=== PATIENT | female | born 1955 | race Caucasian/White ===

== ENCOUNTER → 2018-06-13 00:45 | Outpatient (CLI) | payer BC, SELFPAY ==
[2018-06-13 09:16] LABS: ALT 20 U/L (12-78); AST 14 U/L (15-37); Albumin 3.6 g/dL (3.4-5.0); Alkaline Phosphatase 65 U/L (46-116); Anion Gap 6.2 mmol/L (3-11); BUN 12 mg/dL (7-18); Bilirubin, Total 0.7 mg/dL (0.2-1.0); CO2 30.8 mmol/L (21.0-32.0); CREATININE 0.56 mg/dL (0.55-1.02); Calcium 8.5 mg/dL (8.5-10.1); Chloride 107 mmol/L (98-107); Cholesterol 170 mg/dL (50-200); Glucose 88 mg/dL (70-100); HDL Cholesterol 64 mg/dL (40-60); LDL CHOLESTEROL 95 mg/dL (<100); Potassium 4.2 mmol/L (3.5-5.1); Sodium 144 mmol/L (136-145); Total Protein 6.5 g/dL (6.4-8.2); Triglyceride 91 mg/dL (30-150)
== END ==
DX: Z00.00 Encounter for general adult medical examination without abnormal findings (principal); E78.2 Mixed hyperlipidemia; N95.2 Postmenopausal atrophic vaginitis
CPT/HCPCS: 36415; 80053; 80061; 83721

== ENCOUNTER → 2018-06-19 00:52 | Outpatient (CLI) | payer BC, SELFPAY ==
--- NOTE | 2018-06-19 08:21 | DI.REPORT_ITS ---
SYMPTOMS/DIAGNOSIS: SCREENING, Z12.31 MAMMOGRAMS: Mammograms were interpreted according to the usual protocol including computer analysis with CAD system, tomosynthesis and C view imaging. The breast tissue is heterogeneously radiodense, which lowers the sensitivity of the study. There is no evidence of a dominant mass. There are no suspicious calcifications and there has been no significant interval change when compared with prior images. SUMMARY: No evidence of malignancy, category 1. Yearly screening mammography is recommended. Breast density category C. SA ASSESSMENT OF FINDINGS: Negative. Category 1. Patient will receive a letter notifying them of these results. Bi-RADS category C. The breasts are heterogeneously dense, which may obscure small masses.
== END ==
DX: Z12.31 Encounter for screening mammogram for malignant neoplasm of breast (principal)
CPT/HCPCS: 77063; 77067

== ENCOUNTER 2019-03-08 06:37 | Emergency (ER) | payer MEDICARE, BC, SELFPAY ==
[2019-03-08 06:43] VITALS: BP 141/65; PULSE 87; RESP 18; TEMP 36.9; O2SAT 97
--- NOTE | 2019-03-08 06:51 | W.ED.GENAD ---
Discharge Plan Disposition Patient Disposition: HOME Condition: Stable Discharge Details Chief Complaint: EyeProblem Clinical Impression: Bilateral conjunctivitis Primary Care Provider: Verónica Emmanuel ED Provider: Bc Hernández Home Meds and New Rx's Prescriptions: New erythromycin 5 mg/gram (0.5 %) ointment 1.25 cm OP TID Qty: 3.5 RF: 0 No Action amoxicillin 500 mg tablet 500 mg PO TID Qty: 21 RF: 0 calcium carbonate-vitamin D3 [Calcium 600 + D(3)] 1 EACH tablet 1 ea PO DAILY RF: 0 magnesium oxide 400 MG capsule 400 mg PO DAILY RF: 0 ibuprofen [Motrin IB] 200 MG tablet 200 mg PO daily prn RF: 0 famotidine 10 MG tablet 10 mg PO bid prn Qty: 30 RF: 4 doxepin 10 MG capsule 10 mg PO hs prn Qty: 30 RF: 3 simvastatin 5 MG tablet 5 mg PO DAILY Qty: 90 RF: 4 Discharge Instructions Instructions: Conjunctivitis (ED) Additional Instructions: if you have deep eye pain, difficulty breathing or high persistent fevers return to the emergency department if not better after you get back from [place] return to the emergency department Medical Decision Making 63 yo female comes in with chief complaint of bilateral eye redness and discharge. She is on abx for strep throat dx'd at her pcp's office. Her sore throat has improved but she still doesn't feel 100% and has had several days of eye redness and d/c. She denies vision chagnes, fevers, recent travel. On exam she is in no distress speaking in full sentences with clear lungs, normal oropharynx. She has bilateral conjunctival redness and green d/c. Will tx as possible bacterial conjunctivitis. She appears well without fever or other indications of serious bacterial illness so do not feel labs or imaging indicated. ADvised f/u with pcp and return precautions given Differential Diagnosis uri, pna, conjunctivitis HPI General Mode of arrival: ambulatory. Date/Time Provider Initiated Documentation: 03/08/19 06:40. Limitations to Documentation: no limitations. Information obtained by: patient. History of Present Illness 63 year old F presents to the emergency department with the chief complaint of eye redness, described as moderate, Quality is described as burning, and is localized to the eyes. Patient started experiencing this day(s) (3) and it has been constant. No relieving factors improve symptom(s), No exacerbating factors reported . Related Data Home Medications Medication Instructions Recorded Confirmed calcium carbonate-vitamin D3 1 ea PO DAILY 11/10/13 03/05/19 [Calcium 600 + Vit D 400 Caplet] magnesium oxide 400 mg PO DAILY 11/10/13 03/03/19 ibuprofen [Motrin Ib] 200 mg PO daily prn tab-cap 06/04/14 03/05/19 famotidine 10 mg PO bid prn #30 tab-cap 11/12/14 03/05/19 doxepin 10 mg PO hs prn #30 tab-cap 06/10/18 03/05/19 simvastatin 5 mg PO DAILY #90 tab-cap 06/10/18 03/05/19 amoxicillin 500 mg tablet 500 mg PO TID #21 tab 03/03/19 03/05/19 erythromycin 1.25 cm OP TID #3.5 gm 03/08/19 Previous Rx's Medication Instructions Recorded doxepin 10 mg PO hs prn #30 tab-cap 06/10/18 simvastatin 5 mg PO DAILY #90 tab-cap 06/10/18 amoxicillin 500 mg tablet 500 mg PO TID #21 tab 03/03/19 erythromycin 1.25 cm OP TID #3.5 gm 03/08/19 Allergies Allergy/AdvReac Type Severity Reaction Status Date / Time tetracycline AdvReac Severe NAUSEATED Verified 03/08/19 06:49 hydrocodone bitartrate AdvReac Mild Nausea Verified 03/08/19 06:49 [From Vicodin] General Stated Complaint: EyeProblem VENTURA: 4 Review of Systems Review of Systems All systems reviewed & are unremarkable except as noted in HPI and below Constitutional Denies chills and Denies fever(s) Cardiovascular Denies chest pain and Denies dyspnea Respiratory Denies dyspnea Gastrointestinal Denies abdominal pain, Denies nausea and Denies vomiting Integumentary/Breasts Denies rash [facility] Medical History Hemorrhoids (Acute) Foot pain, right (Acute) Mitral valve regurgitation (Acute) Medullary sponge kidney (Acute) Lipoma (Acute) Kidney stone (Acute 11/10/13) Insomnia (Acute) Hyperlipidemia (Acute 11/10/13) Family history of colon cancer (Acute 11/10/13) 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 Grandfather No problems noted. Grandmother Essential hypertension Grandmother Essential hypertension Stroke Daughter No problems noted. Daughter Depression Social History Smoking/Tobacco Use Status: Never Drug use: Never Do you feel safe at home: Yes Do you feel safe in your relationship?: Yes Exam Const General: no acute distress Orientation: alert HENMT Head: normal to inspection Ears: external ears normal General nose exam: external nose normal Mouth: moist mucous membranes Eyes Periorbital: periorbital findings normal Eyelids: eyelids normal Neck Neck: normal visual inspection Resp Effort & Inspection: normal respiratory effort and able to speak in complete sentences Cardio Rate: regular rate Skin General skin exam: no rashes or lesions noted Neuro General: alert and oriented x3 Extrem General: normal to inspection Psych Mental Status: mental status grossly normal Course Vital Signs Temperature 36.9 C 03/08/19 06:43 Pulse 87 03/08/19 06:43 Respiratory Rate 18 03/08/19 06:43 Blood Pressure 141/65 H 03/08/19 06:43 Pulse Oximetry 97 03/08/19 06:43 Temperature 36.9 C 03/08/19 06:43 Temperature Source Temporal Artery Scan 03/08/19 06:43 Pulse 87 03/08/19 06:43 Respiratory Rate 18 03/08/19 06:43 Respiratory Effort Non-Labored 03/08/19 06:43 Blood Pressure 141/65 H 03/08/19 06:43 Blood Pressure Position Sitting 03/08/19 06:43 Pulse Oximetry 97 03/08/19 06:43 Oxygen Delivery Method Room Air 03/08/19 06:43 Oxygen Flow Rate 0 03/08/19 06:43 Pain Level 0 03/08/19 06:43
--- NOTE | 2019-03-08 07:00 | ED.GENADUL_ITS ---
Discharge Plan Disposition Patient Disposition: HOME Condition: Stable Discharge Details Chief Complaint: EyeProblem Clinical Impression: Bilateral conjunctivitis Primary Care Provider: Verónica Emmanuel ED Provider: Bc Hernández Home Meds and New Rx's Prescriptions: New erythromycin 5 mg/gram (0.5 %) ointment 1.25 cm OP TID Qty: 3.5 RF: 0 No Action amoxicillin 500 mg tablet 500 mg PO TID Qty: 21 RF: 0 calcium carbonate-vitamin D3 [Calcium 600 + D(3)] 1 EACH tablet 1 ea PO DAILY RF: 0 magnesium oxide 400 MG capsule 400 mg PO DAILY RF: 0 ibuprofen [Motrin IB] 200 MG tablet 200 mg PO daily prn RF: 0 famotidine 10 MG tablet 10 mg PO bid prn Qty: 30 RF: 4 doxepin 10 MG capsule 10 mg PO hs prn Qty: 30 RF: 3 simvastatin 5 MG tablet 5 mg PO DAILY Qty: 90 RF: 4 Discharge Instructions Instructions: Conjunctivitis (ED) Additional Instructions: if you have deep eye pain, difficulty breathing or high persistent fevers return to the emergency department if not better after you get back from [place] return to the emergency department Medical Decision Making 63 yo female comes in with chief complaint of bilateral eye redness and discharge. She is on abx for strep throat dx'd at her pcp's office. Her sore throat has improved but she still doesn't feel 100% and has had several days of eye redness and d/c. She denies vision chagnes, fevers, recent travel. On exam she is in no distress speaking in full sentences with clear lungs, normal oropharynx. She has bilateral conjunctival redness and green d/c. Will tx as possible bacterial conjunctivitis. She appears well without fever or other indications of serious bacterial illness so do not feel labs or imaging indicated. ADvised f/u with pcp and return precautions given Differential Diagnosis uri, pna, conjunctivitis HPI General Mode of arrival: ambulatory . Date/Time Provider Initiated Documentation: 03/08/19 06:40 . Limitations to Documentation: no limitations . Information obtained by: patient . History of Present Illness 63 year old F presents to the emergency department with the chief complaint of eye redness, described as moderate, Quality is described as burning, and is localized to the eyes. Patient started experiencing this day(s) (3) and it has been constant. No relieving factors improve symptom(s), No exacerbating factors reported . Related Data Home Medications Medication Instructions Recorded Confirmed calcium carbonate-vitamin D3 1 ea PO DAILY 11/10/13 03/05/19 [Calcium 600 + Vit D 400 Caplet] magnesium oxide 400 mg PO DAILY 11/10/13 03/03/19 ibuprofen [Motrin Ib] 200 mg PO daily prn tab-cap 06/04/14 03/05/19 famotidine 10 mg PO bid prn #30 tab-cap 11/12/14 03/05/19 doxepin 10 mg PO hs prn #30 tab-cap 06/10/18 03/05/19 simvastatin 5 mg PO DAILY #90 tab-cap 06/10/18 03/05/19 amoxicillin 500 mg tablet 500 mg PO TID #21 tab 03/03/19 03/05/19 erythromycin 1.25 cm OP TID #3.5 gm 03/08/19 Previous Rx's Medication Instructions Recorded doxepin 10 mg PO hs prn #30 tab-cap 06/10/18 simvastatin 5 mg PO DAILY #90 tab-cap 06/10/18 amoxicillin 500 mg tablet 500 mg PO TID #21 tab 03/03/19 erythromycin 1.25 cm OP TID #3.5 gm 03/08/19 Allergies Allergy/AdvReac Type Severity Reaction Status Date / Time tetracycline AdvReac Severe NAUSEATED Verified 03/08/19 06:49 hydrocodone bitartrate AdvReac Mild Nausea Verified 03/08/19 06:49 [From Vicodin] General Stated Complaint: EyeProblem VENTURA: 4 Review of Systems Review of Systems All systems reviewed & are unremarkable except as noted in HPI and below Constitutional Denies chills and Denies fever(s) Cardiovascular Denies chest pain and Denies dyspnea Respiratory Denies dyspnea Gastrointestinal Denies abdominal pain, Denies nausea and Denies vomiting Integumentary/Breasts Denies rash FOR[facility], [facility] Medical History Hemorrhoids (Acute) Foot pain, right (Acute) Mitral valve regurgitation (Acute) Medullary sponge kidney (Acute) Lipoma (Acute) Kidney stone (Acute 11/10/13) Insomnia (Acute) Hyperlipidemia (Acute 11/10/13) Family history of colon cancer (Acute 11/10/13) 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 Grandfather No problems noted. Grandmother Essential hypertension Grandmother Essential hypertension Stroke Daughter No problems noted. Daughter Depression Social History Smoking/Tobacco Use Status: Never Drug use: Never Do you feel safe at home: Yes Do you feel safe in your relationship?: Yes Exam Const General: no acute distress Orientation: alert HENMT Head: normal to inspection Ears: external ears normal General nose exam: external nose normal Mouth: moist mucous membranes Eyes Periorbital: periorbital findings normal Eyelids: eyelids normal Neck Neck: normal visual inspection Resp Effort & Inspection: normal respiratory effort and able to speak in complete sentences Cardio Rate: regular rate Skin General skin exam: no rashes or lesions noted Neuro General: alert and oriented x3 Extrem General: normal to inspection Psych Mental Status: mental status grossly normal Course Vital Signs Temperature 36.9 C 03/08/19 06:43 Pulse 87 03/08/19 06:43 Respiratory Rate 18 03/08/19 06:43 Blood Pressure 141/65 H 03/08/19 06:43 Pulse Oximetry 97 03/08/19 06:43 Temperature 36.9 C 03/08/19 06:43 Temperature Source Temporal Artery Scan 03/08/19 06:43 Pulse 87 03/08/19 06:43 Respiratory Rate 18 03/08/19 06:43 Respiratory Effort Non-Labored 03/08/19 06:43 Blood Pressure 141/65 H 03/08/19 06:43 Blood Pressure Position Sitting 03/08/19 06:43 Pulse Oximetry 97 03/08/19 06:43 Oxygen Delivery Method Room Air 03/08/19 06:43 Oxygen Flow Rate 0 03/08/19 06:43 Pain Level 0 03/08/19 06:43
== END 2019-03-08 07:13 | disposition home or self-care (01) ==
LOC: ER 07:08
PROVIDERS: Emergency Provider Emergency Medicine
DX: H10.33 Unspecified acute conjunctivitis, bilateral (principal)
CPT/HCPCS: 99283

== ENCOUNTER 2019-06-03 01:36 | Outpatient (CLI) | payer MEDICARE, BC, SELFPAY ==
[2019-06-03 08:45] LABS: ALT 23 U/L (12-78); AST 15 U/L (15-37); Albumin 3.7 g/dL (3.4-5.0); Alkaline Phosphatase 76 U/L (46-116); BUN 14 mg/dL (7-18); Bilirubin, Total 0.6 mg/dL (0.2-1.0); CREATININE 0.52 mg/dL (0.55-1.02); Calcium 8.4 mg/dL (8.5-10.1); Calculated LDL 116 mg/dL; Chloride 106 mmol/L (98-107); Cholesterol 192 mg/dL (50-200); Glucose 89 mg/dL (70-100); HDL Cholesterol 63 mg/dL (40-60); Potassium 4.3 mmol/L (3.5-5.1); Sodium 142 mmol/L (136-145); Total Protein 6.8 g/dL (6.4-8.2); Triglyceride 66 mg/dL (30-150)
== END 2019-06-03 01:56 ==
DX: C44.211 Basal cell carcinoma of skin of unspecified ear and external auricular canal (principal); E78.5 Hyperlipidemia, unspecified; G47.00 Insomnia, unspecified; I34.0 Nonrheumatic mitral (valve) insufficiency; Q61.5 Medullary cystic kidney
CPT/HCPCS: 36415; 80053; 80061; 83721

== ENCOUNTER → 2019-06-22 11:14 | Outpatient (BNVA) | payer MEDICARE, BC, SELFPAY | PROVIDERS: Visit Provider Surgery | DX: K64.4 Residual hemorrhoidal skin tags (principal); Z80.0 Family history of malignant neoplasm of digestive organs | CPT/HCPCS: 99202; 99213 ==

== ENCOUNTER 2019-07-06 01:11 | Outpatient (CLI) | payer MEDICARE, BC, SELFPAY ==
--- NOTE | 2019-07-06 08:38 | DI.MAMMO_ITS ---
SYMPTOM/DIAGNOSIS: SCREENING Z12.31 BILATERAL SCREENING MAMMOGRAM: Mammograms were interpreted according to the usual protocol including computer analysis with CAD system, tomosynthesis and C view imaging. Comparison is made with exams from 2014 through 2018. The breasts are composed of heterogeneously dense fibroglandular tissue, breast density category C. There are scattered benign appearing calcifications bilaterally. No suspicious microcalcifications or masses are seen. There has been no significant change. IMPRESSION: Category 2, negative mammogram with benign findings. Yearly screening mammography is recommended. Breast density category C. MQSA ASSESSMENT OF FINDINGS: Negative with benign findings. Category 2. Patient will receive a letter notifying them of these results. Bi-RADS category C. The breasts are heterogeneously dense, which may obscure small masses.
== END 2019-07-06 01:31 ==
DX: Z12.31 Encounter for screening mammogram for malignant neoplasm of breast (principal)
CPT/HCPCS: 77063; 77067

== ENCOUNTER 2019-09-08 23:01 | Outpatient (REF) | payer MEDICARE, BC, SELFPAY | END 2019-09-08 23:21 | LOC: LBN 23:01 | PROVIDERS: Visit Provider Nurse Practitioner | DX: J02.9 Acute pharyngitis, unspecified (principal) | CPT/HCPCS: 87077; 87070 ==

== ENCOUNTER 2020-06-21 04:35 | Outpatient (CLI) | payer MEDICARE, BC, SELFPAY ==
[2020-06-21 08:33] LABS: ALT 24 U/L (14-59); AST 16 U/L (15-37); Albumin 3.9 g/dL (3.4-5.0); Alkaline Phosphatase 74 U/L (46-116); Anion Gap 6.2 mmol/L (3-11); BUN 12 mg/dL (7-18); Bilirubin, Total 0.8 mg/dL (0.2-1.0); CO2 30.8 mmol/L (21.0-32.0); CREATININE 0.59 mg/dL (0.55-1.02); Calculated LDL 124 mg/dL (<100); Chloride 105 mmol/L (98-107); Cholesterol 209 mg/dL (<200); Glucose 92 mg/dL (74-106); HDL Cholesterol 66 mg/dL (40-60); Potassium 4.1 mmol/L (3.5-5.1); Sodium 142 mmol/L (136-145); Total Protein 6.9 g/dL (6.4-8.2); Triglyceride 99 mg/dL (<150)
== END 2020-06-21 04:55 ==
DX: E78.5 Hyperlipidemia, unspecified (principal); F32.9 Major depressive disorder, single episode, unspecified; H81.10 Benign paroxysmal vertigo, unspecified ear
CPT/HCPCS: 36415; 80053; 80061

== ENCOUNTER 2020-07-14 01:23 | Outpatient (CLI) | payer MEDICARE, BC, SELFPAY ==
--- NOTE | 2020-07-14 08:38 | DI.MAMMO_ITS ---
EXAM: MG MAMMO SCREENING CLINICAL HISTORY: screening, Z12.39 TECHNIQUE: Bilateral full field digital CC and MLO mammographic images were obtained with 3D tomosyn thesis and utilizing computer aided detection (CAD). COMPARISON: Available for comparison. FINDINGS: Masses/Architectural Distortion: None seen. Microcalcifications: No suspicious pleomorphic-type are seen. Skin Thickening/Nipple Retraction: None. IMPRESSION: 1. No significant interval change with no specific features of malignancy noted. 2. Unless there is more urgent need, screening mammography is recommended, as per [employer] guidelines. BI-RADS Category 1 - Negative Breast Density - Category C - Heterogeneously dense The mammogram demonstrates the patient's breast tissue is dense. Dense breast tissue is very common a nd is not abnormal but dense breast tissue can make it harder to find cancer on a mammogram. Also, de nse breast tissue may increase their breast cancer risk. This information about the result of the [facility] mogram report was provided to the patient to raise their awareness. Use this report when you speak wi th the patient about their risks for breast cancer, which includes their family history. At that time , you may recommend for more screening tests (Ultrasound or MRI) as they might be useful based on the ir risk. A negative radiographic report should not delay biopsy if a dominant or clinically suspicious mass is present. Up to ten percent of cancers are not identified on mammography. A negative report may reinforce clinical impression. Adenosis and dense breasts may obscure an underlying neoplasm. False positive reports average 6 to 10%. Patient will receive a letter notifying them of these results.
== END 2020-07-14 01:43 ==
DX: Z12.31 Encounter for screening mammogram for malignant neoplasm of breast (principal); R92.2 Inconclusive mammogram
CPT/HCPCS: 77063; 77067

== ENCOUNTER 2021-03-09 06:21 | Emergency (ER) | payer MEDICARE, BC, SELFPAY ==
[2021-03-09] VITALS (26 sets, daily range): BP systolic 107–154; BP diastolic 43–84; PULSE 61–81; RESP 14–18; TEMP 36.8–37.2; O2SAT 92–97
--- NOTE | 2021-03-09 06:38 | ED.GENADUL_ITS ---
Discharge Plan Disposition Patient Disposition: HOME Condition: Improving Discharge Details Clinical Impression: Abdominal pain, Nausea Primary Care Provider: Verónica Emmanuel ED Provider: Janeth Nichols Home Meds and New Rx's Prescriptions: New prochlorperazine maleate [Compazine] 10 mg tablet 10 mg PO TID PRN (Reason: nausea and vomiting) Qty: 7 RF: 0 Continued magnesium 250 mg tablet 250 mg PO DAILY RF: 0 simvastatin 5 mg tablet 5 mg PO DAILY Qty: 90 RF: 4 sertraline 50 mg tablet 50 mg PO DAILY Qty: 30 RF: 2 calcium carbonate-vitamin D3 [Calcium 600 + D(3)] 1 EACH tablet 1 ea PO DAILY RF: 0 ibuprofen [Motrin IB] 200 MG tablet 200 mg PO daily prn RF: 0 famotidine 10 MG tablet 10 mg PO bid prn Qty: 30 RF: 4 Discharge Instructions Instructions: Acute Nausea and Vomiting (ED), Abdominal Pain (ED) Additional Instructions: Drink plenty of fluids and get plenty of rest. Alternate tylenol and motrin as needed and directed for pain. Your prescription has been sent electronically to your pharmacy. Call the pharmacy to make sure your prescription is ready before pickup. Take the prescription as directed. Call your primary care doctor's office today to schedule a follow-up appointment for reevaluation within the next week. Call the general surgery office to schedule a follow-up appointment for re evaluation for a potential upper endoscopy if your nausea persists and for scheduling of your colonoscopy. Return immediately to the emergency department if you develop any worsening or new concerning symptoms. Referrals: Mcia Lozano DO [OSTEOPATHIC DOCTOR] - Discharge Data Discharge Physician: Janeth Nichols Medical Decision Making <Bc Hernández MD - Last Filed: 03/09/21 06:49> 65 yo female with hx of hyperlipidemia, depression, two prior c sections, who comes in with chief complaint of one week of worsening abdominal discomfort and nausea without vomit. She denies chest pain, dyspnea, has been having daily bowel movements and no urinary symptoms. she states when she lays flat she has nausea. She has tenderness to palpation to the mid, right lower and left lower abdomen without guarding on exam. Symptoms could be due to gastritis vs food related allergy but given the tenderness on exam will obtain labs to evaluate for pancreatitis and hepatitis and ct to evaluate for possible diverticulitis vs sbo. pt signed out to oncoming provider pending labs and imaging results Differential Diagnosis Differential Diagnosis: gerd, gastritis, sbo, pancreatitis Medical Records Medical records reviewed: Yes I reviewed the patient's medical records. <Janeth Nichols DO - Last Filed: 03/09/21 13:26> 0800 --please see Dr. Hernández's note for initial presentation, exam and plan. Case endorsed to follow-up on labs and imaging results and reassessment and final disposition. 65-year-old female presents with 1 week of nausea and lower abdominal crampy pain. She states her main complaint is nausea but has occasional cramping in her lower abdomen. She denies any vomiting, change in bowel habits including diarrhea, rectal bleeding. She denies any fever, chest pain, shortness of breath, recent new medications, drug or alcohol use, recent known sick contacts. She did travel last week for a but this was after her symptoms started. Labs and imaging reviewed. Normal white blood cell count. Normal lactate. Normal lipase. Urinalysis notes 3-5 WBCs but rare bacteria and negative nitrite. In the setting of lack of urinary symptoms, normal white blood cell count and no fever, would doubt UTI. Urine culture sent. Patient appears significantly anxious. She states she was seen her primary care doctor for the symptoms and was told it was likely depression and started on sertraline 2 days ago. Considering patient's age, will add a troponin and EKG, Phenergan and Valium and reassess. Troponin negative. EKG notes a rate of 71, sinus, left anterior fascicular block, no STEMI. Patient reassessed and she states her symptoms improved but now her nausea is returning. Will give a dose of Compazine and Benadryl and reassess. 1325 --patient reassessed and she feels better and feels good to go home. Patient informed that she will be notified if urine culture positive. A prescription for Compazine was sent electronically to her pharmacy. She was also advised to call her primary care doctor tomorrow to schedule follow-up appointment for reevaluation within the next week. She was given surgery follow-up information if needed if her nausea and abdominal pain persist for reevaluation and consideration for upper endoscopy. Usual and customary return precautions given prior to discharge. Medical Records Medical records reviewed: Yes I reviewed the patient's medical records. ECG Data Attestation: I personally reviewed and interpreted this ECG (s) as follows: Interpretation: Rate of 71, sinus, left anterior fascicular block. No acute ST elevation or depression. TN 182. QRS 83. QTc 432. HPI <Bc Hernández MD - Last Filed: 03/09/21 06:49> General Mode of arrival: ambulatory . Date/Time Provider Initiated Documentation: 03/09/21 06:24 . Limitations to Documentation: no limitations . Information obtained by: patient . History of Present Illness 65 year old F presents to the emergency department with the chief complaint of abdomen pain, described as moderate, Patient started experiencing this week(s) (1) and it has been constant. No relieving factors improve symptom(s), No exacerbating factors reported . Patient did receive the following treatments prior to arrival, none Related Data Home Medications Medication Instructions Recorded Confirmed calcium carbonate-vitamin D3 1 ea PO DAILY 11/10/13 03/09/21 [Calcium 600 + D(3)] ibuprofen [Motrin IB] 200 mg PO daily prn tab-cap 06/04/14 03/09/21 famotidine 10 mg PO bid prn #30 tab-cap 11/12/14 03/09/21 magnesium 250 mg tablet 250 mg PO DAILY 06/11/19 03/09/21 simvastatin 5 mg tablet 5 mg PO DAILY #90 tab-cap 06/16/20 03/09/21 sertraline 50 mg tablet 50 mg PO DAILY #30 tab 03/07/21 03/09/21 prochlorperazine maleate 10 mg PO TID PRN #7 tab 03/09/21 [Compazine] Previous Rx's Medication Instructions Recorded simvastatin 5 mg tablet 5 mg PO DAILY #90 tab-cap 06/16/20 sertraline 50 mg tablet 50 mg PO DAILY #30 tab 03/07/21 prochlorperazine maleate 10 mg PO TID PRN #7 tab 03/09/21 [Compazine] Allergies Allergy/AdvReac Type Severity Reaction Status Date / Time tetracycline AdvReac Severe NAUSEATED Verified 03/09/21 06:32 hydrocodone bitartrate AdvReac Mild Nausea Verified 03/09/21 06:32 [From Vicodin] General Stated Complaint: Abd Prob VENTURA: 3 Review of Systems <Bc Hernández MD - Last Filed: 03/09/21 06:49> All systems reviewed & are unremarkable except as noted in HPI and below Constitutional Constitutional: Denies chills, Denies fever(s) and Denies weakness Cardiovascular Cardiovascular: Denies chest pain and Denies dyspnea Respiratory Respiratory: Denies cough and Denies dyspnea Gastrointestinal Gastrointestinal: Denies vomiting Musculoskeletal Musculoskeletal: Denies joint swelling Neurologic Neurologic: Denies weakness PFSH <Bc Hernández MD - Last Filed: 03/09/21 06:49> Medical History 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 DUENAS) Discomfort of left ear Elevated BP without diagnosis of hypertension Encounter for annual physical exam Family history of colon cancer (11/10/13) Foot pain, right Headache Hemorrhoids Hyperlipidemia (11/10/13) Insomnia Kidney stone (11/10/13) 1980 and 1991 Lipoma right axilla Medullary sponge kidney Mitral valve regurgitation MVP Skin lesions Surgical History section Colonoscopy - IV Sedation (05/30/16) Family History Mother , 89 Essential hypertension Hyperlipidemia Stroke Father , 81 Essential hypertension Heart disease Colon cancer Liver cancer Brother Hyperlipidemia Maternal Grandfather , 44 No problems noted. Paternal Grandfather , 92 No problems noted. Maternal Grandmother , 88 Essential hypertension Paternal Grandmother , 51 Essential hypertension Stroke Daughter No problems noted. Daughter Depression Social History Smoking/Tobacco Use Status: Never Second Hand Exposure: Yes Smoking risk assessment performed?: Yes Alcohol Intake: current Alcohol Intake frequency: holidays/special occasions only Alcohol type: wine Drug use: Never Substance use type: does not use Counseling given: No Counseling provided: none Caregiver/Support person: No Household members: spouse Housing: house Communication Needs: Corrective Lenses Do you need help understanding health information?: Never Pets and animals: No Do you think of yourself as: straight/heterosexual Current gender identity: female What is your relationship status?: How often do you talk on the phone with friends or family?: three or more times per week How often do you get together with friends or relatives?: three or more times per week How often do you attend sabianism or catholic services?: decline to answer Do you belong to any clubs or organized social groups?: yes Panel score (0-1 are the most socially isolated patients): 3 What type of physical activity do you participate in: walking and other Details: exercise group for strength and balance Duration: 15-30 minutes/day Frequency: 3-4 times per week Pamela/Advent: Rastafarian Special pamela needs: Yes (Last rights by a ) Seatbelt use: always Drive intox or ride w/intox 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 Do you feel safe at home: Yes Do you feel safe in your relationship?: Yes Exam <Bc Hernández MD - Last Filed: 03/09/21 06:49> Const General: no acute distress Orientation: alert HENMT Head: normal to inspection Ears: external ears normal General nose exam: external nose normal Mouth: moist mucous membranes Eyes General: appearance normal, both eyes and all related structures Neck Neck: normal visual inspection Resp Effort & Inspection: normal respiratory effort and able to speak in complete sentences Cardio Rate: regular rate GI Palpation: soft and tender Skin General skin exam: no rashes or lesions noted Neuro General: patient alert and patient oriented x3 Extrem General: normal to inspection Psych Mental Status: mental status grossly normal Course <Bc Hernández MD - Last Filed: 03/09/21 06:49> Vital Signs Vital signs: Vital Signs Temperature 37.1 C 03/09/21 06:28 Pulse 81 03/09/21 06:28 Respiratory Rate 16 03/09/21 06:28 Blood Pressure 154/56 H 03/09/21 06:28 Pulse Oximetry 94 03/09/21 06:28 Temperature 37.1 C 03/09/21 06:28 Temperature Source Skin 03/09/21 06:28 Pulse 81 03/09/21 06:28 Respiratory Rate 16 03/09/21 06:28 Respiratory Effort Non-Labored 03/09/21 06:33 Blood Pressure 154/56 H 03/09/21 06:28 Blood Pressure Position Sitting 03/09/21 06:28 Pulse Oximetry 94 03/09/21 06:28 Oxygen Delivery Method Room Air 03/09/21 06:28 Oxygen Flow Rate 0 03/09/21 06:28 Sign Out <Bc Hernández MD - Last Filed: 03/09/21 06:49> Sign Out Data: Sign Out Comment: one week primarily of nausea without vomit but some abdominal tenderness in mid abdomen and lower abdomen, pending labs and ct Last updated by Bc Hernández MD at 03/09/21 06:54
[2021-03-09] MEDS: Ondansetron 4 MG/2 ML VIAL IVP (07:13)
[2021-03-09] MEDS: Normal Saline 1,000 ML 1000 ML IV (07:13)
[2021-03-09 07:16] LABS: Abs Immature Grans 0.04 10^3/uL (0.0-0.06); Absolute Basophil Count 0.05 10^3/uL (0.0-0.2); Absolute Eosinophil Count 0.07 10^3/uL (0.0-0.7); Absolute Lymphocyte Count 1.62 10^3/uL (1.2-3.4); Absolute Monocyte Count 0.39 10^3/uL (0.1-0.8); Absolute Neutrophil Count 8.26 10^3/uL (1.2-6.7); Basophils % 0.5; Eosinophils % 0.7; HCT 41.4 % (36.0-46.0); HGB 13.8 g/dL (11.2-15.7); Immature Grans % 0.4; Lactate 0.8 mmol/L (0.6-1.4); Lymphocytes % 15.5; MCH 31.2 pg (27.0-33.0); MCHC 33.3 % (32.0-36.0); MCV 93.7 fL (80-95); MPV 10.6 fL (8.0-11.0); Monocytes % 3.7; Neutrophils % 79.2; Nucleated RBC 0 %; Platelet Count 245 10^3/uL (130-400); RBC 4.42 10^6/uL (3.93-5.22); RDW 11.9 % (11.7-14.6); RDW-SD 41.5 fL; WBC 10.43 10^3/uL (4.4-10.8)
[2021-03-09 07:20] LABS: Bilirubin Negative (Negative); Blood Trace-lysed (Negative); Clarity Clear (Clear); Glucose Negative (Negative); Ketones Negative (Negative); Leukocyte Esterase Trace (Negative); Nitrite Negative (Negative); Specific Gravity >= 1.030 (1.005-1.025); Urobilinogen 0.2 EU/dL (Up TO 0.2); pH 5.5 (5-8)
[2021-03-09 07:29] LABS: Epithelial Cells Rare HPF (Negative)
[2021-03-09 07:30] LABS: Bacteria Rare HPF (Negative); C & S Indicated? Yes; Casts Negative LPF (Negative); Crystals Negative HPF (Negative); Mucus Trace (Negative)
[2021-03-09 07:35] LABS: INR 1.1 (0.9-1.1); PTT Activated 24.5 sec (21.0-27.5); Prothrombin Time 10.9 sec (9.3-11.0)
[2021-03-09 07:43] LABS: ALT 24 U/L (14-59); AST 13 U/L (15-37); Albumin 4.1 g/dL (3.4-5.0); Alkaline Phosphatase 75 U/L (46-116); Anion Gap 9.2 mmol/L (3-11); BUN 10 mg/dL (7-18); Bilirubin, Direct 0.2 mg/dL (0.0-0.2); Bilirubin, Total 0.9 mg/dL (0.2-1.0); CO2 29.8 mmol/L (21.0-32.0); CREATININE 0.6 mg/dL (0.55-1.02); Chloride 103 mmol/L (98-107); Glucose 103 mg/dL (74-106); Potassium 3.4 mmol/L (3.5-5.1); Sodium 142 mmol/L (136-145); Total Protein 7.6 g/dL (6.4-8.2)
[2021-03-09] MEDS: Normal Saline - Diluent 50 ML VIAL IV (08:13)
[2021-03-09] MEDS: Omnipaque 350 MG/ML 100 ML BTL IJ (08:13)
[2021-03-09] MEDS: Normal Saline Flush 10 ML SYR IVP (08:14)
--- NOTE | 2021-03-09 08:14 | DI.CT_ITS ---
EXAM: CT ABDOMEN PELVIS W CLINICAL HISTORY: mid to lower abdomen pain. TECHNIQUE: Imaging Protocol: Axial computed tomography images with coronal and sagittal reformatted images were created and reviewed CONTRAST MATERIAL: Intravenous: Omnipaque 100cc Oral: None COMPARISON: CT RENAL COLIC WO CONTRAST from 11/01/2011 FINDINGS: VISUALIZED LUNG BASES: No nodules nor pleural effusions evident. ABDOMEN: There is no ascites. LIVER: There is a 7 x 6 millimeter well-defined hypodensity in the right hepatic lobe which difficult to compared to 2011 study as the prior study was not in fused. This is probably benign cyst or smal l hemangioma. No other focal hepatic lesions identified. GALLBLADDER/BILIARY: No obvious gallbladder pathology. CBD is not dilated. PANCREAS: No evidence of pancreatic mass nor dilatation of the pancreatic duct. SPLEEN: Spleen is not enlarged. No obvious intrasplenic lesions. Splenic and portal veins are paten t. ADRENALS: There are no significant adrenal masses. Slight thickening of the genu of the left adrenal gland is noted. KIDNEYS:No cysts evident. No solid renal masses evident. There is a 2-3 millimeter nonobstructive ca lculus in the lower pole of the left kidney. No other intrarenal calculi evident. No calculi seen i n the opposite-right kidney.. ABDOMINAL AORTA: Calcified but not enlarged. LYMPH NODES:There is no retroperitineal nor paraaortic adenopathy. ABDOMINAL WALL/GI: No evidence of significant anterior abdominal wall hernia. No bowel obstruction. PELVIS: GI: No evidence of appendicitis.There is sigmoid diverticulosis. No obvious acute diverticulitis. LYMPH NODES: There is no intrapelvic nor inguinal adenopathy. REPRODUCTIVE: There multiple dilated veins left side of the uterus-left adnexa. These drain into a s lightly prominent left gonadal vein which itself drains into the pre aortic left renal vein. Consist ent with an element of pelvic congestion. Similar finding not seen on the right side. There is no f ree fluid in the pelvis. No abnormal adnexal mass is evident. Uterus size is age-appropriate. No f luid seen in the endometrial canal. URINARY BLADDER: No calculi nor obvious masses evident OSSEOUS: No significant osseous lesions. IMPRESSION: 1. There are dilated left parauterine veins which drain into a prominent left gonadal vein, as descri bed above. Consistent with element of pelvic congestion syndrome. This is unilateral left; similar findings are not seen in the right side. 2. Small benign-appearing solitary finding in the liver which is probably a cyst or small hemangioma. 3. Extensive sigmoid diverticulosis. No obvious acute diverticulitis. 4. Small 2-3 millimeter solitary nonobstructive calculus in the left kidney. RADIATION DOSE DELIVERED: 680.43mGy.cm Total DLP DATA REPOSITORY: All CT scans at this facility are submitted to the National Radiology Data Registry (NRDR) Dose Index Registry (DIR) with the [employer] (A[employer]). RADIATION OPTIMIZATION: All CT scans at this facility use at least one of these dose optimization te chniques: automated exposure control; mA and/or kV adjustment per patient size (includes targeted exa ms where dose is matched to clinical indication); or iterative reconstruction.
[2021-03-09 08:40] LABS: Lipase 47 U/L (73-393)
--- NOTE | 2021-03-09 09:11 | NUR.NOTE ---
Nursing Note: pt ambulates to restroom with steady gait.
--- NOTE | 2021-03-09 09:15 | RT.EKG_ITS ---
APPROVED REPORT Exam: Resting ECG Patient Location: E HR:71 bpm ECG Measurements Heart Rate 71 AXIS NC 182 P 74 QRSd 83 QRS -48 QT 398 T 80 QTc 432 Conclusion Sinus rhythm...normal P axis, V-rate 60- 99 Left anterior fascicular block...axis(240,-40), init forces inf. No STEMI. I have reviewed and interpreted ECG and agree with software generated interpretation.
[2021-03-09] MEDS: diazePAM 5 MG TAB PO (09:19)
[2021-03-09 09:42] LABS: Troponin I < 0.05 ng/mL (<0.06)
--- NOTE | 2021-03-09 11:08 | NUR.NOTE ---
Nursing Note: provided with PB and crackers and gingerale per ER MD. in nad. resp even and unlabored. family at bedside. denies any other needs at this time,
[2021-03-09] MEDS: Prochlorperazine 10 MG/2 ML VIAL IVP (11:56)
[2021-03-09] MEDS: diphenhydrAMINE 50 MG/ML VIAL 25 MG IVP (11:56)
--- NOTE | 2021-03-09 12:25 | NUR.NOTE ---
Nursing Note: PT RESTING COMFORTABLY AT THIS TIME. DENIES ANY NEEDS. SKIN PWD.
== END 2021-03-09 13:32 | disposition home or self-care (01) ==
PROVIDERS: Emergency Medicine; Emergency Provider Physician Assistant
DX: R11.0 Nausea (principal); R10.31 Right lower quadrant pain; R10.32 Left lower quadrant pain
CPT/HCPCS: 80053; 83690; 93005; 96361; 96374; 96375; 99285; 74177; 81003; 81015; 82248; 83605; 83735; 84484; 85025; 85610; 85730; 87086; 93010; 99284; J0780; J1200; J2405; J3490

== ENCOUNTER 2021-06-08 17:17 | Emergency (ER) | payer MEDICARE, BC, SELFPAY ==
[2021-06-08 17:24] VITALS: BP 122/60; PULSE 78; RESP 16; TEMP 36.8; O2SAT 97
--- NOTE | 2021-06-08 17:30 | DI.RAD_ITS ---
Exam(s) XR ANKLE RT COMPLETE EXAM: XR ANKLE RT COMPLETE CLINICAL HISTORY: pain s/p fall. TECHNIQUE: 2D digital imaging was performed. COMPARISON: No exams were available for comparison FINDINGS: BONES: There is an acute nondisplaced fracture of the tip of the lateral malleolus. No bony destruct owen lesion is seen. JOINTS: The ankle mortise is normally aligned. SOFT TISSUE: Soft tissue swelling laterally. IMPRESSION: Acute nondisplaced fracture of the tip of the lateral malleolus. DATA REPOSITORY: RADIATION DOSE DELIVERED:
--- NOTE | 2021-06-08 17:30 | DI.RAD_ITS ---
Exam(s) XR KNEE LT 3V AP,LAT,OMAIRA EXAM: XR KNEE LT 3V AP,LAT,OMAIRA CLINICAL HISTORY: pain s/p fall. TECHNIQUE: 2D digital imaging was performed. COMPARISON: CR CHEST 2 VIEWS PA,LAT from 09/02/2016 FINDINGS: BONES: There is an acute non distracted transverse fracture through the inferior pole of the patella . No bony destructive lesion is seen. JOINTS: The knee is normally aligned. SOFT TISSUE: Normal. IMPRESSION: Nondisplaced transverse fracture through the inferior patellar. DATA REPOSITORY: RADIATION DOSE DELIVERED:
--- NOTE | 2021-06-08 17:38 | W.ED.GENAD ---
Discharge Plan Disposition Patient Disposition: HOME Condition: Stable Discharge Details Clinical Impression: Closed right fibular fracture, Closed fracture of left patella Primary Care Provider: Verónica Emmanuel ED Provider: Bc Hernández Home Meds and New Rx's Prescriptions: Continued magnesium 250 mg tablet 250 mg PO DAILY RF: 0 simvastatin 5 mg tablet 5 mg PO DAILY Qty: 90 RF: 4 prochlorperazine maleate [Compazine] 10 mg tablet 10 mg PO TID PRN (Reason: nausea and vomiting) Qty: 7 RF: 0 sertraline 50 mg tablet 50 mg PO DAILY Qty: 90 RF: 4 calcium carbonate-vitamin D3 [Calcium 600 + D(3)] 1 EACH tablet 1 ea PO DAILY RF: 0 ibuprofen [Motrin IB] 200 MG tablet 200 mg PO daily prn PRNRF: 0 famotidine 10 MG tablet 10 mg PO bid prn Qty: 30 RF: 4 Discharge Instructions Instructions: Leg Fracture (ED) Additional Instructions: You broke the right fibula at the ankle and your left patella you can take 1000mg tylenol and 600mg ibuprofen every 6 hours for pain as needed call orthopedics for an appointment if you feel more ill, have severe worsening pain or new pain such as chest pain return to the emergency department Referrals: Harvey Moore MD [ [facility] STAFF PHYSICIAN] - Medical Decision Making 65 yo female comes in after she was on an uneven driveway, slipped and twisted her right ankle and left knee. Denies preceding symptoms to the fall and states it was purely mechanicaly. She denies head pain, neck pain, chest pain or abdomen pain. No upper extremity pain. She has pain in the lateral right ankle and anterior left knee. On exam she is in no distress caox4 without signs of trauma to the head and is caox4. No midline spine tenderness. She has pain over the lateral right ankle with swelling. She is able to fully dorsi and plantar flex. She has normal sensation and pulses in the foot. She has no tenderness in the foot. She has a small 2cm abrasion to the left anterior knee. She is able to full flex and extend though with pain. She has tenderness to the anterior left knee, no swelling or effusion on exam. Suspect ankle sprain and knee contusion, will obtain xrays to evaluate for fracture pt stable, has mild distal fibular fracture and inferior patella fracture. Placed in walking boot and knee immobilizer, has support for care at home, will have her f/u with ortho. Differential Diagnosis Differential Diagnosis: contusion, fracture, sprain Imaging Data Radiologic Study: Attestation: I personally reviewed and interpreted this imaging study as follows: Imaging: X-Ray Radiologist's impression: PROCEDURE INFORMATION: Exam: XR Right Ankle Exam date and time: 06/08/2021 5:38 PM Age: 65 years old Clinical indication: Pain; Ankle; Right TECHNIQUE: Imaging protocol: XR Right ankle. Views: 3 or more views. COMPARISON: CR RIGHT SECOND TOE 07/07/2016 9:55 AM FINDINGS: Bones/joints: There is soft tissue swelling of the lateral malleolus. There is a subtle avulsion fracture of the distal fibula without significant displacement. The ankle mortise appears intact. There is a small joint effusion. Soft tissues: See Bones/joints finding. IMPRESSION: Distal fibular avulsion fracture. Radiologic Study #2: Attestation: I personally reviewed and interpreted this imaging study as follows: Imaging: X-Ray Radiologist's impression: IMPRESSION: Inferior patellar fracture and associated joint effusion. Thank you for allowing us to participate in the care of your patient. Lab Data Lab results reviewed: Yes I reviewed the patient's lab results. HPI General Date/Time Provider Initiated Documentation: 06/08/21 17:18. Limitations to Documentation: no limitations. Information obtained by: patient. History of Present Illness 65 year old F presents to the emergency department with the chief complaint of right ankle pain, described as moderate, and is localized to the lower extremity. Patient started experiencing this hour(s) (2) and it has been constant. Rest improves symptom(s), Patient notes other (left knee pain). Patient did receive the following treatments prior to arrival, none Related Data Home Medications Medication Instructions Recorded Confirmed calcium carbonate-vitamin D3 1 ea PO DAILY 11/10/13 06/08/21 [Calcium 600 + D(3)] ibuprofen [Motrin IB] 200 mg PO daily prn PRN tab-cap 06/04/14 06/08/21 famotidine 10 mg PO bid prn #30 tab-cap 11/12/14 06/08/21 magnesium 250 mg tablet 250 mg PO DAILY 06/11/19 06/08/21 simvastatin 5 mg tablet 5 mg PO DAILY #90 tab-cap 06/16/20 06/08/21 prochlorperazine maleate 10 mg 10 mg PO TID PRN #7 tab 03/30/21 06/08/21 tablet sertraline 50 mg tablet 50 mg PO DAILY #90 tab 04/13/21 06/08/21 Previous Rx's Medication Instructions Recorded simvastatin 5 mg tablet 5 mg PO DAILY #90 tab-cap 06/16/20 prochlorperazine maleate 10 mg 10 mg PO TID PRN #7 tab 03/30/21 tablet sertraline 50 mg tablet 50 mg PO DAILY #90 tab 04/13/21 Allergies Allergy/AdvReac Type Severity Reaction Status Date / Time tetracycline AdvReac Severe NAUSEATED Verified 06/08/21 17:30 hydrocodone bitartrate AdvReac Mild Nausea Verified 06/08/21 17:30 [From Vicodin] General Stated Complaint: Orthopedic VENTURA: 4 Review of Systems All systems reviewed & are unremarkable except as noted in HPI and below Constitutional Constitutional: Denies chills, Denies fever(s) and Denies weakness Cardiovascular Cardiovascular: Denies chest pain and Denies dyspnea Respiratory Respiratory: Denies cough and Denies dyspnea Gastrointestinal Gastrointestinal: Denies abdominal pain, Denies nausea and Denies vomiting Neurologic Neurologic: Denies weakness [facility] Medical History Anxiety 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 DUENAS) Discomfort of left ear Elevated BP without diagnosis of hypertension Encounter for annual physical exam Family history of colon cancer (11/10/13) Foot pain, right Headache Hemorrhoids Hyperlipidemia (11/10/13) Insomnia Kidney stone (11/10/13) 1980 and 1991 Lipoma right axilla Medullary sponge kidney Mitral valve regurgitation MVP Skin lesions Surgical History section Colonoscopy - IV Sedation (05/30/16) Family History Mother , 89 Essential hypertension Hyperlipidemia Stroke Father , 81 Essential hypertension Heart disease Colon cancer Liver cancer Brother Hyperlipidemia Maternal Grandfather , 44 No problems noted. Paternal Grandfather , 92 No problems noted. Maternal Grandmother , 88 Essential hypertension Paternal Grandmother , 51 Essential hypertension Stroke Daughter No problems noted. Daughter Depression Social History Smoking/Tobacco Use Status: Never Second Hand Exposure: Yes Smoking risk assessment performed?: Yes Alcohol Intake: current Alcohol Intake frequency: holidays/special occasions only Alcohol type: wine Drug use: Never Substance use type: does not use Counseling given: No Counseling provided: none Caregiver/Support person: No Household members: spouse Housing: house Communication Needs: Corrective Lenses Do you need help understanding health information?: Never Pets and animals: No Do you think of yourself as: straight/heterosexual Current gender identity: female What is your relationship status?: How often do you talk on the phone with friends or family?: three or more times per week How often do you get together with friends or relatives?: three or more times per week How often do you attend sikhism or faith services?: decline to answer Do you belong to any clubs or organized social groups?: yes Panel score (0-1 are the most socially isolated patients): 3 What type of physical activity do you participate in: walking and other Details: exercise group for strength and balance Duration: 15-30 minutes/day Frequency: 3-4 times per week Pamela/Pentecostal: Uatsdin Special pamela needs: Yes (Last rights by a ) Seatbelt use: always Drive intox or ride w/intox driver messenger: No Do you feel safe at home: Yes Do you feel safe in your relationship?: Yes Exam Const General: no acute distress Orientation: alert [facility] Head: normal to inspection Ears: external ears normal General nose exam: external nose normal Mouth: moist mucous membranes Eyes General: appearance normal, both eyes and all related structures Neck Neck: normal visual inspection Resp Effort & Inspection: normal respiratory effort and able to speak in complete sentences Cardio Rate: regular rate Skin General skin exam: no rashes or lesions noted Neuro General: patient alert and patient oriented x3 Extrem General: full ROM and capillary refill normal Psych Mental Status: mental status grossly normal Course Vital Signs Vital signs: Vital Signs Temperature 36.8 C 06/08/21 17:24 Pulse 78 06/08/21 17:24 Respiratory Rate 16 06/08/21 17:24 Blood Pressure 122/60 06/08/21 17:24 Pulse Oximetry 97 06/08/21 17:24 Temperature 36.8 C 06/08/21 17:24 Temperature Source Skin 06/08/21 17:24 Pulse 78 06/08/21 17:24 Respiratory Rate 16 06/08/21 17:24 Respiratory Effort Non-Labored 06/08/21 17:32 Blood Pressure 122/60 06/08/21 17:24 Blood Pressure Position Supine 06/08/21 17:24 Pulse Oximetry 97 06/08/21 17:24 Oxygen Delivery Method Room Air 06/08/21 17:24 Oxygen Flow Rate 0 06/08/21 17:24 Pain Level 2 06/08/21 17:24
[2021-06-08] MEDS: Acetaminophen 500 MG TAB 1000 MG PO (17:43)
--- NOTE | 2021-06-08 18:47 | DI.VRAD_ITS ---
PROCEDURE INFORMATION: Exam: XR Right Ankle Exam date and time: 06/08/2021 5:38 PM Age: 65 years old Clinical indication: Pain; Ankle; Right TECHNIQUE: Imaging protocol: XR Right ankle. Views: 3 or more views. COMPARISON: CR RIGHT SECOND TOE 07/07/2016 9:55 AM FINDINGS: Bones/joints: There is soft tissue swelling of the lateral malleolus. There is a subtle avulsion fracture of the distal fibula without significant displacement. The ankle mortise appears intact. There is a small joint effusion. Soft tissues: See Bones/joints finding. IMPRESSION: Distal fibular avulsion fracture. Dictated and Authenticated by: Lottie Voss MD. Ordering:RIGOBERTO Yancey MD
--- NOTE | 2021-06-08 18:54 | DI.VRAD_ITS ---
PROCEDURE INFORMATION: Exam: XR Left Knee Exam date and time: 06/08/2021 5:38 PM Age: 65 years old Clinical indication: Pain; Knee; Right TECHNIQUE: Imaging protocol: XR Left knee. Views: 3 views. COMPARISON: No relevant prior studies available. FINDINGS: Bones/joints: There is a moderate-sized joint effusion. There is a transverse patellar fracture seen inferiorly. There is no significant distraction. Soft tissues: Normal. IMPRESSION: Inferior patellar fracture and associated joint effusion. Dictated and Authenticated by: Lottie Voss MD. Ordering:RIGOBERTO Yancey MD
== END 2021-06-08 19:27 | disposition home or self-care (01) ==
PROVIDERS: Emergency Provider Emergency Medicine
DX: S82.491A Other fracture of shaft of right fibula, initial encounter for closed fracture (principal); S82.092A Other fracture of left patella, initial encounter for closed fracture; W01.0XXA Fall on same level from slipping, tripping and stumbling without subsequent striking against object, initial encounter
CPT/HCPCS: 29505; 29515; 73562; 99284; 73610

== ENCOUNTER 2021-06-16 10:40 | Outpatient (CLI) | payer MEDICARE, BC, SELFPAY ==
--- NOTE | 2021-06-16 09:45 | DI.RAD_ITS ---
Exam(s) XR KNEE LT 2V AP,LAT EXAM: XR KNEE LT 2V AP,LAT CLINICAL HISTORY: f/u L patella TECHNIQUE: COMPARISON: CR,XR XR KNEE LT 3V AP,LAT,OMAIRA from 06/08/2021 FINDINGS: Two views were obtained. Previous described inferior patellar fracture again noted. No gross interv al change in alignment on this limited series in comparison with prior examination of June 08. IMPRESSION: RADIATION DOSE DELIVERED: Total DLP
== END 2021-06-16 10:41 | disposition home or self-care (01) ==
LOC: DIORS 10:40
PROVIDERS: Referring Provider Student in an Organized Health Care Education/Training Program; Visit Provider Student in an Organized Health Care Education/Training Program
DX: S82.002A Unspecified fracture of left patella, initial encounter for closed fracture (principal); S82.092A Other fracture of left patella, initial encounter for closed fracture; S82.401A Unspecified fracture of shaft of right fibula, initial encounter for closed fracture; W01.0XXA Fall on same level from slipping, tripping and stumbling without subsequent striking against object, initial encounter
CPT/HCPCS: 99214; 73560

== ENCOUNTER 2021-06-23 10:51 | Outpatient (CLI) | payer MEDICARE, BC, SELFPAY ==
--- NOTE | 2021-06-23 10:30 | DI.RAD_ITS ---
Exam(s) XR KNEE LT 2V AP,LAT EXAM: XR KNEE LT 2V AP,LAT CLINICAL HISTORY: left patella fracture. TECHNIQUE: 2D digital imaging was performed. COMPARISON: CR XR KNEE LT 2V AP,LAT from 06/16/2021 FINDINGS: BONES: There has been no change in alignment of the patellar fracture. No bony destructive lesion i s seen. JOINTS: The knee is normally aligned. No joint effusion is seen. SOFT TISSUE: Normal. IMPRESSION: Stable patellar fracture. DATA REPOSITORY: RADIATION DOSE DELIVERED:
== END 2021-06-23 10:52 | disposition home or self-care (01) ==
LOC: DIORS 10:52
PROVIDERS: Visit Provider Physician Assistant
DX: S82.092D Other fracture of left patella, subsequent encounter for closed fracture with routine healing; S82.401D Unspecified fracture of shaft of right fibula, subsequent encounter for closed fracture with routine healing; X58.XXXD Exposure to other specified factors, subsequent encounter
CPT/HCPCS: 99213; 73560

== ENCOUNTER 2021-07-21 09:56 | Outpatient (CLI) | payer MEDICARE, BC, SELFPAY ==
--- NOTE | 2021-07-21 09:30 | DI.RAD_ITS ---
Exam(s) XR KNEE LT 2V AP,LAT EXAM: XR KNEE LT 2V AP,LAT CLINICAL HISTORY: L patella fx. TECHNIQUE: 2D digital imaging was performed. COMPARISON: CR XR KNEE LT 2V AP,LAT from 06/23/2021 FINDINGS: BONES: There has been continued healing of the fracture at the lower pole of the patella. No acute fracture is present. No bony destructive lesion is seen. JOINTS: The knee is normally aligned. No joint effusion is seen. SOFT TISSUE: Normal. IMPRESSION: Continued healing of the fracture of the lower pole the patella. DATA REPOSITORY: RADIATION DOSE DELIVERED:
== END 2021-07-21 09:57 | disposition home or self-care (01) ==
LOC: DIORS 09:56
PROVIDERS: Visit Provider Student in an Organized Health Care Education/Training Program
DX: S82.092D Other fracture of left patella, subsequent encounter for closed fracture with routine healing (principal); S82.401D Unspecified fracture of shaft of right fibula, subsequent encounter for closed fracture with routine healing; X58.XXXD Exposure to other specified factors, subsequent encounter
CPT/HCPCS: 99213; 73560

== ENCOUNTER 2021-07-24 04:05 | Outpatient (CLI) | payer MEDICARE, BC, SELFPAY ==
[2021-07-24 09:24] LABS: Anion Gap 7.4 mmol/L (3-11); BUN 10 mg/dL (7-18); CO2 32.6 mmol/L (21.0-32.0); CREATININE 0.6 mg/dL (0.55-1.02); Calcium 8.9 mg/dL (8.5-10.1); Calculated LDL 128 mg/dL (<100); Chloride 108 mmol/L (98-107); Cholesterol 214 mg/dL (<200); Glucose 88 mg/dL (74-106); HDL Cholesterol 68 mg/dL (40-60); Potassium 4.2 mmol/L (3.5-5.1); Sodium 148 mmol/L (136-145); Triglyceride 94 mg/dL (<150)
== END 2021-07-24 04:06 | disposition home or self-care (01) ==
LOC: LBO 04:05
DX: E78.5 Hyperlipidemia, unspecified; Z13.220 Encounter for screening for lipoid disorders; Z00.00 Encounter for general adult medical examination without abnormal findings
CPT/HCPCS: 36415; 80048; 80061

== ENCOUNTER 2021-08-24 01:59 | Outpatient (CLI) | payer MEDICARE, BC, SELFPAY ==
--- NOTE | 2021-08-24 09:55 | DI.MAMMO_ITS ---
Exam(s) MAMMO SCREENING EXAM: MAMMO SCREENING CLINICAL HISTORY: screening,Z12.39 TECHNIQUE: Mammograms were interpreted according to the usual protocol including computer analysis w [employer] CAD system, tomosynthesis and C-view imaging. COMPARISON: FINDINGS: The breasts are of moderate density with fairly symmetrical distribution of fibroglandular tissue. N o dominant mass or clumped microcalcification is identified in either breast. The current examinatio n is compared with previous examinations including July 2020. There is question of increased pr ominence of an area of asymmetric density projected in the central portion of the left breast on CC v iew. Additional mammographic views are requested to include a CC spot compression view of this area. No other significant change seen. IMPRESSION: Additional mammographic views of the left breast requested as described above. Breast ultrasound may be indicated as well depending on the results additional mammographic views. BI-RADS Category 0 - Assessment Incomplete: Need additional imaging evaluation Breast Density - Category B - Scattered areas of fibroglandular density
== END 2021-08-24 02:19 ==
DX: Z12.31 Encounter for screening mammogram for malignant neoplasm of breast (principal); R92.8 Other abnormal and inconclusive findings on diagnostic imaging of breast
CPT/HCPCS: 77063; 77067

== ENCOUNTER 2021-09-01 09:51 | Outpatient (CLI) | payer MEDICARE, BC, SELFPAY ==
--- NOTE | 2021-09-01 09:45 | DI.RAD_ITS ---
Exam(s) XR KNEE LT 2V AP,LAT EXAM: XR KNEE LT 2V AP,LAT CLINICAL HISTORY: follow up. TECHNIQUE: 2D digital imaging was performed of the left knee. Three images were obtained. AP and l ateral views were obtained. COMPARISON: CR,XR XR KNEE LT 3V AP,LAT,OMAIRA from 06/08/2021 CR XR KNEE LT 2V AP,LAT from 07/21/2021 FINDINGS: BONES: There has been further healing of the patellar fracture. No new fracture or dislocation. Th e bones are osteopenic. There is an enthesophyte at the superior patella. JOINTS: The knee is normally aligned. No joint effusion is seen. SOFT TISSUE: Normal. IMPRESSION: Healed patellar fracture. DATA REPOSITORY: RADIATION DOSE DELIVERED:
== END 2021-09-01 09:52 | disposition home or self-care (01) ==
LOC: DIORS 09:51
PROVIDERS: Visit Provider Student in an Organized Health Care Education/Training Program
DX: S82.831D Other fracture of upper and lower end of right fibula, subsequent encounter for closed fracture with routine healing (principal); S82.092D Other fracture of left patella, subsequent encounter for closed fracture with routine healing; X58.XXXD Exposure to other specified factors, subsequent encounter
CPT/HCPCS: 99213; 73560

== ENCOUNTER 2021-09-04 00:24 | Outpatient (CLI) | payer MEDICARE, BC, SELFPAY ==
--- NOTE | 2021-09-04 | DI.US_ITS ---
Exam(s) US BREAST LT COMPLETE EXAM: US BREAST LT COMPLETE CLINICAL HISTORY: F.U MAMMO, ? INCREASED ASYMMETRICDENSITY - LEFT. TECHNIQUE: Complete ultrasound of the left breast was performed including all 4 quadrants, the retro areolar region, and the ipsilateral axilla. COMPARISON: Prior mammograms were reviewed. FINDINGS: There is no evidence of solid or significant cystic lesions in all 4 quadrants of the left breast nor in the retroareolar region. This is further evidence that finding on the recent screening mammogram 08/24/2021 was benign. No significant left axillary adenopathy IMPRESSION: Negative complete left breast ultrasound Please note additional spot compression mammographic view today also renders this area less concernin g Appropriate follow-up is to keep this patient yearly mammogram schedule, with earlier imaging if a se lf detected breast change is noted.. BI-RADS Category 2 - Benign Findings Breast Density - Category C - Heterogeneously dense Breast density Category C or D implies that the patient has dense breast tissue. Dense breast tissue can make it harder to find cancer on a mammogram. Dense breast tissue is also associated with an incr eased risk of breast cancer. This information about the result of the mammogram report was provided to the patient to raise their awareness. Use this report when you speak with the patient about their risks for breast cancer, which includes their family history. At that time, you may recommend additional screening tests (Ultrasoun d or MRI) as these tests may add significant information. A negative radiographic report should not delay biopsy if a dominant or clinically suspicious mass is present. Up to ten percent of cancers are not identified on mammography. A negative report may reinforce clinical impression. Adenosis and dense breasts may obscure an underlying neoplasm. False positive reports average 6 to 10%. Patient will receive a letter notifying them of these results.
--- NOTE | 2021-09-04 10:46 | DI.MAMMO_ITS ---
Exam(s) MAMMO SCREEN CALL BACK UNI EXAM: MAMMO SCREEN CALL BACK UNI-LEFT CLINICAL HISTORY: F/U MAMMO,? INCREASED ASYMMETRIC DENSITY LT. TECHNIQUE: Unilateral spot mammographic images obtained with 3D tomosynthesisand utilizing computer aided detection (CAD). . COMPARISON: Prior mammograms were reviewed. This additional imaging was performed due to findings described on the recent screening mammogram of . FINDINGS: Additional mammographic views performed todayrender this area less concerning. Please note the ultrasound performed today reveals no significant findings. Please see that separate report. IMPRESSION: No radiographic evidence of malignancy in the left breast. Appropriate follow-up is this patient on a yearly mammogram schedule, with earlier imaging if a self detected breast change is noted.. The patient was informed of these findings and recommendations prior to leaving the department today. BI-RADS Category 2 - Benign Findings Breast Density - Category C - Heterogeneously dense Breast density Category C or D implies that the patient has dense breast tissue. Dense breast tissue can make it harder to find cancer on a mammogram. Dense breast tissue is also associated with an incr eased risk of breast cancer. This information about the result of the mammogram report was provided to the patient to raise their awareness. Use this report when you speak with the patient about their risks for breast cancer, which includes their family history. At that time, you may recommend additional screening tests (Ultrasoun d or MRI) as these tests may add significant information. A negative radiographic report should not delay biopsy if a dominant or clinically suspicious mass is present. Up to ten percent of cancers are not identified on mammography. A negative report may reinforce clinical impression. Adenosis and dense breasts may obscure an underlying neoplasm. False positive reports average 6 to 10%. Patient will receive a letter notifying them of these results.
== END 2021-09-04 00:44 ==
DX: Z12.31 Encounter for screening mammogram for malignant neoplasm of breast (principal); R92.8 Other abnormal and inconclusive findings on diagnostic imaging of breast; N64.59 Other signs and symptoms in breast
CPT/HCPCS: 76642; 77063; 77067

== ENCOUNTER → 2021-09-08 09:53 | Outpatient (BNVA) | payer MEDICARE, BC, SELFPAY | PROVIDERS: Visit Provider Physical Therapy Assistant | DX: Z12.11 Encounter for screening for malignant neoplasm of colon (principal); Z80.0 Family history of malignant neoplasm of digestive organs ==

== ENCOUNTER 2021-09-27 02:28 | Outpatient (CLI) | payer MEDICARE, BC, SELFPAY ==
[2021-09-27 10:53] LABS: Source Nasal/Nares
[2021-09-27 14:13] LABS: COVID-19 PCR Negative (Negative)
== END 2021-09-27 02:29 | disposition home or self-care (01) ==
LOC: LBO 02:28
PROVIDERS: Surgery; Visit Provider Surgery
DX: Z20.822 Contact with and (suspected) exposure to COVID-19 (principal); Z01.818 Encounter for other preprocedural examination
CPT/HCPCS: 87635

== ENCOUNTER 2022-01-03 00:34 | Outpatient (CLI) | payer MEDICARE, SELFPAY ==
--- NOTE | 2022-01-03 08:20 | DI.RAD_ITS ---
Exam(s) XR ABD FLAT UPRIGHT PA CHEST CLINICAL HISTORY: recurrent abdominal pain, bloating,abnl BS,? SBO,hypoactive gurgling bs,r10. COMPARISON: CR CHEST 2 VIEWS PA,LAT from 09/02/2016 FINDINGS: LUNGS: Hyperinflation. Mild apical scarring, otherwise clear. No pleural abnormality seen. HEART: Normal. MEDIASTINUM: Normal. BOWEL GAS PATTERN: Nondistended bowel loops. No air-fluid levels seen. ABNORMAL COLLECTIONS OF AIR: No abnormal collection of air. No pneumoperitoneum. CALCIFICATIONS: None. No radiopaque renal, ureteral, or bladder calcification. OTHER FINDINGS: Degenerative changes and mild scoliosis in the thoracolumbar spine. IMPRESSION: 1. Nonobstructive bowel gas pattern. 2. No acute pulmonary findings.
== END 2022-01-03 00:54 ==
PROVIDERS: Visit Provider Family Medicine
DX: R10.31 Right lower quadrant pain (principal); R14.0 Abdominal distension (gaseous); R19.15 Other abnormal bowel sounds; R19.8 Other specified symptoms and signs involving the digestive system and abdomen
CPT/HCPCS: 74022

== ENCOUNTER 2022-01-03 01:56 | Outpatient (CLI) | payer MEDICARE, SELFPAY ==
[2022-01-03 14:57] LABS: Abs Immature Grans 0.01 10^3/uL (0.0-0.06); Absolute Basophil Count 0.04 10^3/uL (0.0-0.2); Absolute Eosinophil Count 0.08 10^3/uL (0.0-0.7); Absolute Lymphocyte Count 2.72 10^3/uL (1.2-3.4); Absolute Monocyte Count 0.44 10^3/uL (0.1-0.8); Absolute Neutrophil Count 4.13 10^3/uL (1.2-6.7); Basophils % 0.5; Eosinophils % 1.1; HCT 40.8 % (36.0-46.0); HGB 13.1 g/dL (11.2-15.7); Immature Grans % 0.1; Lymphocytes % 36.7; MCHC 32.1 % (32.0-36.0); MCV 96.7 fL (80-95); MPV 10.9 fL (8.0-11.0); Monocytes % 5.9; Neutrophils % 55.7; Nucleated RBC 0 %; Platelet Count 233 10^3/uL (130-400); RBC 4.22 10^6/uL (3.93-5.22); RDW 12.2 % (11.7-14.6); RDW-SD 43.1 fL; WBC 7.42 10^3/uL (4.4-10.8)
[2022-01-03 15:09] LABS: Bilirubin Negative (Negative); Blood Negative (Negative); Clarity Clear (Clear); Glucose Negative (Negative); Ketones Negative (Negative); Leukocyte Esterase Small (Negative); Nitrite Negative (Negative); Specific Gravity >= 1.030 (1.005-1.025); Urobilinogen 0.2 EU/dL (Up TO 0.2)
[2022-01-03 15:20] LABS: Bacteria Few HPF (Negative); Casts Negative LPF (Negative); Crystals Negative HPF (Negative); Epithelial Cells Few HPF (Negative); Mucus Trace (Negative); RBC 0-2 HPF (0-2); WBC 20-50 HPF (0-5)
[2022-01-03 15:21] LABS: C & S Indicated? Yes
[2022-01-03 17:06] LABS: ALT 18 U/L (14-59); AST 11 U/L (15-37); Alkaline Phosphatase 74 U/L (46-116); BUN 12 mg/dL (7-18); Bilirubin, Total 0.5 mg/dL (0.2-1.0); C-Reactive Protein < 0.05 mg/dL (0.0-0.3); CREATININE 0.7 mg/dL (0.55-1.02); Calcium 9.4 mg/dL (8.5-10.1); Chloride 101 mmol/L (98-107); Glucose 108 mg/dL (74-106); Lipase 62 U/L (73-393); Potassium 3.7 mmol/L (3.5-5.1); Sodium 139 mmol/L (136-145); TSH (W/Ref FT4) 0.67 uIU/mL (0.36-3.74); Total Protein 7.1 g/dL (6.4-8.2)
== END 2022-01-03 01:57 | disposition home or self-care (01) ==
LOC: LBO 01:56
PROVIDERS: Visit Provider Family Medicine
DX: R10.9 Unspecified abdominal pain (principal); R19.8 Other specified symptoms and signs involving the digestive system and abdomen; I10 Essential (primary) hypertension
CPT/HCPCS: 36415; 80053; 83690; 81003; 81015; 84443; 85025; 86140; 87086

== ENCOUNTER → 2022-04-19 13:24 | Outpatient (BNVA) | payer MEDICARE, SELFPAY | PROVIDERS: Visit Provider Physical Therapy Assistant | DX: Z12.11 Encounter for screening for malignant neoplasm of colon (principal); Z80.0 Family history of malignant neoplasm of digestive organs ==

== ENCOUNTER 2022-05-11 11:12 | Day surgery (SDC) | payer MEDICARE, SELFPAY ==
--- NOTE | 2022-05-10 15:20 | COLE_ITS ---
Colonoscopy Report Date of procedure: 05/11/22 Pre-op diagnosis general: fam hx of CRC >60 Post-op diagnosis procedure note: other (minor diverticula) Surgeon: Mica Lozano Anesthesia Type: General:No Airway Estimated blood loss (mL): 0 Pathology: none sent Complications: None Disposition: same day Prep: Miralax/Dulcolax Retraction Time: 8 mins Procedure Description: After informed consent was obtained the patient was taken to the procedure room and placed in a left decubitous position. Monitors were applied and a time out was done. The patients name, date of , procedure, allergies to medications and metal in their body was reviewed. The patient was then sedated. Once sedated and comfortable a rectal exam was done. External exam was normal. Internal exam revealed a normal sphincter tone and no palpable masses. The scope was then introduced and retrofelexed. No internal hemorrhoids were identified. The scope was then advanced to the cecum w/out difficulty. The TI and appendiceal orifice were identified. The prep was BBPS 2 in all segments f or a total of 6. The scope was then slowly retracted over 8 minutes back into the rectum. No Polyps were removed today. She has minor diverticula of the sigmoid colon w/ no activie bleeding or infection. The scope was removed and the patient was woken up and taken back to Same day surgery in stable condition. The patient tolerated the procedure well and there were no immediate complications. Follow up: The patient should follow up in 5 years unless they develop changes in bowel habits or other new gastrointestinal complaints.
--- NOTE | 2022-05-10 15:23 | PDOC.DSDIS_ITS ---
Discharge Plan Disposition Patient Disposition: HOME Condition: Good Discharge Details Reason For Visit: colon scope Attending Provider: Mica Lozano Primary Care Provider: Verónica Emmanuel Home Meds and New Rx's Prescriptions: No Action magnesium 250 mg tablet 250 mg PO DAILY calcium carbonate-vitamin D3 [Calcium 600 + D(3)] 1 EACH tablet 1 ea PO DAILY ibuprofen [Motrin IB] 200 MG tablet 200 mg PO daily prn PRN Rx Instructions: Last dose Mon famotidine 10 MG tablet 10 mg PO bid prn Qty: 30 Rx Instructions: takes OTC simvastatin 5 mg tablet 5 mg PO HS sertraline 50 mg tablet 50 mg PO HS cholecalciferol (vitamin D3) [Vitamin D3] 50 mcg (2,000 unit) Capsule 2,000 mcg PO DAILY Discharge Instructions Additional Instructions: [facility] Colonoscopy Post- Op Instructions Instructions for Everyone who is given Anesthesia: For your safety, please do the following for the next twenty-four (24) hours: *Do Not operate a motor vehicle (car, truck, motorcycle, etc.) *Do Not drink alcoholic beverages or use any recreational drugs for the first 24 hours or while taking pain medications. The medications in your body may have a reaction that can be dangerous. *Do Not make any important decisions or sign any important papers. Findings: minor diverticula -Make sure you are moving your bowels on a regular basis and avoid straining to move your bowels. Follow up: Repeat colonoscopy in 5 years time if still healthy for anesthesia. 1. No lifting over 20 pounds or strenuous activity for the first 24 hours after your procedure. After 24 hours there are no restrictions on your activity but you may feel fatigued for a few days. 2. After you arrive home you may have a light meal and return to your normal diet as you can tolerate it without feeling sick to your stomach. 3. You may have a bloated, gaseous feeling in your belly (abdomen) after a colonoscopy. Passing gas and belching will help. Walking or lying down on your left side with your knees flexed may relieve the discomfort. Call the office at [phone] (Office) or [phone] (Hospital) right away if you notice any of the following: a.Vomiting of blood or ?coffee ground stools?. b.Rectal bleeding 1Tbsp, blood clots or continuous bleeding. c.Severe belly (abdominal) pain. d.A hard distended belly (abdomen) and an inability to pass gas. 4. Please don?t expect to have a normal BM (bowel movement) for 2-3 days after your procedure. 5. If there are questions regarding the findings of your procedure, please contact your doctor 6. If you are unable to contact your doctor with a problem, contact the hospital at [phone]. 7. Continue all your regular medications unless directed otherwise. I understand the above instructions and have no questions. Signature of Patient or Adult Escort Name of Responsible Adult Escort Signature of Nurse Date/Time Stand Alone Forms: Anesthesia Discharge Inst[facility] [place] ([facility]) Activity:: see above Diet:: see above Discharge Orders Discharge Orders: Discharge Order (Routine); Ordered 05/10/22 Ordered By: Mica Lozano
[2022-05-11 07:40] LABS: Source Nasal/Nares
[2022-05-11 08:46] LABS: COVID-19 PCR Negative (Negative)
[2022-05-11 11:26] VITALS: BP 127/55; PULSE 113; RESP 18; TEMP 35.9; O2SAT 96
[2022-05-11] MEDS: Lactated Ringers 1,000 ML 80 ML IV (11:52)
--- NOTE | 2022-05-11 11:53 | W.ANESPRE ---
General Info Date of Service Date Performed: 05/11/22 Height: 5 ft 1 in Weight: 56.8 kg Body Mass Index (BMI): 23.6 Surgical Procedure: Operation Date: 05/11/22 11:35 Proposed Procedure Side Surgeon janette Lozano, Meds Allergies and Home Medications Allergies Allergy/AdvReac Type Severity Reaction Status Date / Time tetracycline AdvReac Severe NAUSEATED Verified 05/11/22 11:32 hydrocodone bitartrate AdvReac Mild Nausea Verified 05/11/22 11:32 [From Vicodin] Home Medication Medication Instructions Recorded calcium carbonate 600 mg-vitamin 1 ea PO DAILY 11/10/13 D3 10 mcg (400 unit) tablet (Calcium 600 + D(3)) ibuprofen 200 mg tablet (Motrin IB) 200 mg PO daily prn PRN 06/04/14 famotidine 10 mg tablet 10 mg PO bid prn #30 tab-caps 11/12/14 magnesium 250 mg tablet 250 mg PO DAILY 06/11/19 sertraline 50 mg tablet 50 mg PO HS 05/10/22 simvastatin 5 mg tablet 5 mg PO HS 05/10/22 cholecalciferol (vitamin D3) 50 2,000 mcg PO DAILY 05/11/22 mcg (2,000 unit) capsule (Vitamin D3) Current Visit Medications: Current Medications Generic Name Dose Route Start Last Admin Trade Name Freq PRN Reason Stop Dose Admin Hyoscyamine Sulfate 0.125 mg 05/10/22 15:18 Hyoscyamine 0.125 Mg Sl/Oral/Chew SL DIRECTED PRN Ringer's Solution 1,000 mls @ 80 mls/hr 05/11/22 06:00 IV 06/09/22 23:59 INFUSION TARIQ IV Miscellaneous Supplies 1 each 05/11/22 06:00 Iv Access IV 06/09/22 23:59 DIRECTED TARIQ Ondansetron HCl 4 mg 05/10/22 15:18 Ondansetron 4 Mg/2 Ml Vial IVP Q4H PRN PRN Nausea / Vomiting Sodium Chloride 0 ml 05/11/22 06:00 Normal Saline Flush 10 Ml Syr IV 06/09/22 23:59 PRN PRN Sodium Chloride 0 ml 05/11/22 06:00 Normal Saline 10 Ml Vial IJ 06/09/22 23:59 DIRECTED PRN Sterile Water 0 ml 05/11/22 06:00 Water,Injection,Sterile 10 Ml Vial IJ 06/09/22 23:59 DIRECTED PRN PFSH Active Problems Active Problems: Problem Status Onset Code Screening for colon cancer Z12.11 Hemorrhoids K64.9 Mitral valve regurgitation I34.0 Family history of colon cancer 11/10/13 Z80.0 Medical History Medical History Abdominal pain Anxiety 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 DUENAS) BPV (benign positional vertigo) Closed fracture of left patella (06/08/21) Closed right fibular fracture (06/08/21) COVID-19 03/28/22 +Sx, Home test + 03/30, Plaxlovid ordered 03/30/22 Depressive disorder Discomfort of left ear Elevated BP without diagnosis of hypertension Encounter for annual physical exam Foot pain, right Headache Hyperlipidemia (11/10/13) Insomnia Kidney stone (11/10/13) 1980 and 1991 Lipoma right axilla Medullary sponge kidney Nausea Skin lesions Uterine leiomyoma Surgical History Surgical History section Colonoscopy - IV Sedation (05/30/16) History of section Tobacco Smoking/Tobacco Use Status: Never Passive smoking exposure: Yes Second hand exposure: Yes Alcohol Alcohol Intake: current Alcohol intake frequency: a few times a month Alcohol type: wine Substance Use Substance use: Never Substance use type: does not use Counseling provided: none Vital Signs and Lab Results Vital Signs Most Recent Vital Signs in EMR: Most Recent Vital Signs Temp Pulse Resp BP Pulse Ox 35.9 C L 113 H 18 127/55 L 96 05/11/22 11:26 05/11/22 11:26 05/11/22 11:26 05/11/22 11:26 05/11/22 11:26 Lab Results Blood Type / Crossmatch: No Data to Display Complete Blood Count: No Data to Display Complete Metabolic Panel: No Data to Display Liver Function Panel: No Data to Display Coagulation Panel: No Data to Display Cardiac Panel: No Data to Display Arterial Blood Gas: No Data to Display Venous Blood Gas: No Data to Display Pancreas Panel: No Data to Display Thyroid Panel: No Data to Display Infectious Disease: Coronavirus (COVID-19)(PCR) Negative (Negative) 05/11/22 07:35 Coronavirus 2019 Source Nasal/Nares 05/11/22 07:35 Blood Cultures: No Data to Display Toxicology Panel: No Data to Display Anesthesia Assessment and Plan Anesthesia History Personal History: No History of Anesthesia Complications Family History: No Family History of Anesthesia Complications Exercise Tolerance Exercise Tolerance: Metabolic Equivalents>4 Pertinent Negatives Pertinent Negatives: No Symptoms of GERD, No Major Cardiovascular Symptoms or Complaints, No Major Pulmonary Symptoms or Complaints and No History of CVA/TIA Cardiac & Pulmonary Exam Cardiac Exam: Normal S1/S2 Heart Sounds Pulmonary Exam: Clear Bilateral Breath Sounds Implantable Cardiac Device Does patient have a Pacemaker or an ICD?: No Airway Exam Known Difficult Airway: No Mallampati Class: 1 Mouth Opening: Normal (> 3cm) Thyromental Distance: Greater than 3 cm Neck Range of Motion: Full ROM Neck Circumference: Normal Teeth Condition: Normal Dentition Tooth Numberin. Two chipped teeth, chipped at 6 yo ASA Classification ASA Score: ASA 2 Emergency Case?: No NPO Status NPO Status: NPO Clears >2 hours, Solids >8 hours Anesthesia Plan Resuscitation Status: Full Code Anesthesia Technique: General Anesthesia Airway Planned: Natural Airway Monitors Used: Standard Monitors Preoperative Comments:: Murmur noted during 40 years ago. Resolved post . Not noted since.
[2022-05-11 11:55] VITALS: BMI 23.6
[2022-05-11 13:19] VITALS: BP 130/68; PULSE 81; RESP 18; TEMP 35.8; O2SAT 96
[2022-05-11 13:50] VITALS: BP 122/49; PULSE 67; RESP 16; TEMP 36; O2SAT 99
--- NOTE | 2022-05-11 13:54 | W.ANESPOSTOP ---
Postoperative Evaluation Date, Time and Location Date Performed: 05/11/22 Time Performed: 13:21 Patient Location: Day Surgery Unit Vital Signs Most Recent Imported Vital Signs: Most Recent Vital Signs Temp Pulse Resp BP Pulse Ox 35.8 C L 81 85 H 130/68 96 05/11/22 13:19 05/11/22 13:19 05/11/22 13:19 05/11/22 13:19 05/11/22 13:19 Pain Score Most Recent Pain Score: Most Recent Pain Score Pain Level 0 05/11/22 13:19 Assessment Mental Status: Awake (Alert & Oriented to Patient Baseline) Airway and Respiratory Function: Patent airway with normal (patient baseline) respiratory exam Cardiovascular Function: Hemodynamically Stable Hydration Status: Adequately Hydrated Nausea & Vomiting: No Nausea or Vomiting Pain: Pt. Denies Any Pain Peripheral Nerve Block: Patient did not receive a nerve block
== END 2022-05-11 14:33 | disposition home or self-care (01) ==
PROVIDERS: Visit Provider Surgery
PROC: 0DJD8ZZ Inspection of Lower Intestinal Tract, Via Natural or Artificial Opening Endoscopic (ICD-10-PCS; CPT 45378; principal; 2022-05-11 11:30)
DX: Z12.11 Encounter for screening for malignant neoplasm of colon (principal); Z80.0 Family history of malignant neoplasm of digestive organs; K57.30 Diverticulosis of large intestine without perforation or abscess without bleeding
CPT/HCPCS: G0105; 87635

== ENCOUNTER 2022-07-24 03:59 | Outpatient (CLI) | payer MEDICARE, SELFPAY ==
[2022-07-24 07:52] LABS: ALT 23 U/L (14-59); AST 15 U/L (15-37); Albumin 3.9 g/dL (3.4-5.0); Alkaline Phosphatase 77 U/L (46-116); Anion Gap 5.5 mmol/L (3-11); BUN 12 mg/dL (7-18); Bilirubin, Total 0.5 mg/dL (0.2-1.0); CO2 32.5 mmol/L (21.0-32.0); CREATININE 0.7 mg/dL (0.55-1.02); Calcium 9.1 mg/dL (8.5-10.1); Calculated LDL 147 mg/dL (<100); Chloride 104 mmol/L (98-107); Cholesterol 239 mg/dL (<200); Estimated GFR 94.15 (mL/min/1.73m2); Glucose 102 mg/dL (74-106); HDL Cholesterol 68 mg/dL (40-60); Potassium 3.9 mmol/L (3.5-5.1); Sodium 142 mmol/L (136-145); Total Protein 7.7 g/dL (6.4-8.2); Triglyceride 123 mg/dL (<150)
== END 2022-07-24 04:00 | disposition home or self-care (01) ==
LOC: LBO 03:59
DX: E78.5 Hyperlipidemia, unspecified (principal); Z00.00 Encounter for general adult medical examination without abnormal findings
CPT/HCPCS: 36415; 80053; 80061

== ENCOUNTER 2022-08-04 17:06 | Emergency (ER) | payer MEDICARE, SELFPAY ==
[2022-08-04 17:09] VITALS: BP 116/41; PULSE 64; RESP 18; TEMP 37; O2SAT 98
--- NOTE | 2022-08-04 17:15 | DI.RAD_ITS ---
Exam(s) XR ELBOW LT COMPLETE EXAM: XR ELBOW LT COMPLETE CLINICAL HISTORY: fall/pain TECHNIQUE: COMPARISON: No exams were available for comparison FINDINGS: Three views were obtained. There is a comminuted olecranon fracture and a comminuted fracture of the radial head and neck, there is mild displacement of the fracture fragments of both bones. No defini te humeral fracture seen. IMPRESSION: RADIATION DOSE DELIVERED: Total DLP
--- NOTE | 2022-08-04 17:23 | ED.GENADUL_ITS ---
Discharge Plan Disposition Patient Disposition: HOME Condition: Stable Discharge Details Clinical Impression: Fracture of proximal end of left radius and ulna Primary Care Provider: Verónica Emmanuel ED Provider: Richard Kern Home Meds and New Rx's Prescriptions: Continued magnesium 250 mg tablet 250 mg PO DAILY calcium carbonate-vitamin D3 [Calcium 600 + D(3)] 1 EACH tablet 1 ea PO DAILY ibuprofen [Motrin IB] 200 MG tablet 200 mg PO daily prn PRN Rx Instructions: Last dose Mon famotidine 10 MG tablet 10 mg PO bid prn Qty: 30 Rx Instructions: takes OTC simvastatin 5 mg tablet 5 mg PO HS Qty: 90 3RF sertraline 50 mg tablet 50 mg PO HS cholecalciferol (vitamin D3) [Vitamin D3] 50 mcg (2,000 unit) Capsule 2,000 mcg PO DAILY Discharge Instructions Instructions: Arm Fracture in Adults (ED) Additional Instructions: Wear splint and sling. Rest, elevate, cool compresses every 2 hours for 20. A take-home pack of Tylenol with codeine was provided. Please watch for new or worsening symptoms and return to the ER for any concerns. You may take over- the-counter medications as directed but remember do not exceed 4 g of Tylenol per day. The office of Dr. Moore will be contacting you on Saturday to discuss your CT results and set up outpatient surgical services. Medical Decision Making This is an otherwise healthy 66-year-old female, [id number], not anticoagulated who had a mechanical fall landing on her left elbow, denies any other injury. Patient declines any pain medication except Tylenol. We will provide 1 g of Tylenol and obtain a left elbow x-ray X-ray of the left elbow reveals a comminuted impacted fracture of the proximal ulna and radius with a large joint effusion Case discussed with Dr. Moore, orthopedics. Recommend obtaining CAT scan, long-arm posterior splint, and his office will reach out to the patient on Saturday to discuss the CT results and surgical needs. Patient splinted without complication, she tolerated well. CT obtained, will not await results as it has no bearing on her disposition from the ER Standard discharge and return precautions were provided. Patient understands, is agreeable to this plan, and has no additional questions or concerns upon discharge. This documentation was generated using [employer] system, please disregard any oddities of phrase or misspellings. Medical Records Medical records reviewed: Yes I reviewed the patient's medical records. Imaging Data Radiologic Study: Attestation: I personally reviewed and interpreted this imaging study as follows: Imaging: X-Ray Radiologist's impression: PROCEDURE INFORMATION: Exam: XR Left Elbow Exam date and time: 08/04/2022 5:51 PM Age: 66 years old Clinical indication: Injury or trauma; Blunt trauma (contusions or hematomas); Elbow; Left; Patient HX: Fall/pain TECHNIQUE: Imaging protocol: Radiologic exam of the Left elbow. Views: 3 or more views. COMPARISON: No relevant prior studies available. FINDINGS: Bones/joints: Comminuted impacted fractures of the proximal ulna and radial head. There is an associated joint effusion. No dislocation Soft tissues: Swelling surrounding the elbow and in the antecubital fossa IMPRESSION: Comminuted impacted fractures of the proximal ulna and radius with large joint effusion HPI General Mode of arrival: ambulatory . Date/Time Provider Initiated Documentation: 08/04/22 17:21 . Limitations to Documentation: no limitations . Information obtained by: patient and family . History of Present Illness 66 year old F presents to the emergency department with the chief complaint of L e lbow injury, described as severe, with intensity rated at 7. Quality is described as aching, and is localized to the left and upper extremity. Patient reports no radiation. Patient started experiencing this minute(s) (30) and it has been constant. No relieving factors improve symptom(s), Movement worsens symptoms . Patient notes no other symptoms.. Patient did receive the following treatments prior to arrival, none Related Data Home Medications Medication Instructions Recorded Confirmed calcium carbonate 600 mg-vitamin 1 ea PO DAILY 11/10/13 08/04/22 D3 10 mcg (400 unit) tablet (Calcium 600 + D(3)) ibuprofen 200 mg tablet (Motrin IB) 200 mg PO daily prn PRN 06/04/14 08/04/22 famotidine 10 mg tablet 10 mg PO bid prn #30 tab-caps 11/12/14 08/04/22 magnesium 250 mg tablet 250 mg PO DAILY 06/11/19 08/04/22 sertraline 50 mg tablet 50 mg PO HS 05/10/22 08/04/22 cholecalciferol (vitamin D3) 50 2,000 mcg PO DAILY 05/11/22 08/04/22 mcg (2,000 unit) capsule (Vitamin D3) simvastatin 5 mg tablet 5 mg PO HS #90 tabs 07/12/22 08/04/22 Previous Rx's Medication Instructions Recorded simvastatin 5 mg tablet 5 mg PO HS #90 tabs 07/12/22 Allergies Allergy/AdvReac Type Severity Reaction Status Date / Time tetracycline AdvReac Severe NAUSEATED Verified 08/04/22 17:12 hydrocodone bitartrate AdvReac Mild Nausea Verified 08/04/22 17:12 [From Vicodin] General Stated Complaint: Orthopedic VENTURA: 3 Review of Systems Constitutional Constitutional: Denies weakness Musculoskeletal Musculoskeletal: Denies deformity, Reports arthralgias, Denies numbness, Reports stiffness and Denies tingling Integumentary/Breasts Skin/Breast: Denies rash Neurologic Neurologic: Denies numbness, Denies tingling and Denies weakness PFSH All Active Problems (Updated 08/04/22 @ 19:30 by ASHTYN Jeffrey) Fracture of proximal end of left radius and ulna (Acute) Screening for colon cancer (Acute) Hemorrhoids (Acute) Mitral valve regurgitation (Acute) MVP Family history of colon cancer (Acute 11/10/13) Medical History Abdominal pain Anxiety 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 DUENAS) BPV (benign positional vertigo) Closed fracture of left patella (06/08/21) Closed right fibular fracture (06/08/21) COVID-19 03/28/22 +Sx, Home test + 03/30, Plaxlovid ordered 03/30/22 Depressive disorder Discomfort of left ear Elevated BP without diagnosis of hypertension Encounter for annual physical exam Foot pain, right Headache Hyperlipidemia (11/10/13) Insomnia Kidney stone (11/10/13) 1980 and 1991 Lipoma right axilla Medullary sponge kidney Nausea Skin lesions Uterine leiomyoma Surgical History section Colonoscopy - IV Sedation (05/30/16) History of section Family History Mother , 89 Essential hypertension Hyperlipidemia Stroke Father , 81 Essential hypertension Heart disease Colon cancer Liver cancer Brother Hyperlipidemia Maternal Grandfather , 44 No problems noted. Paternal Grandfather , 92 No problems noted. Maternal Grandmother , 88 Essential hypertension Paternal Grandmother , 51 Essential hypertension Stroke Daughter No problems noted. Daughter Depression Social History Smoking/Tobacco Use Status: Never Second Hand Exposure: Yes Smoking risk assessment performed?: Yes Alcohol Intake: current Alcohol Intake frequency: a few times a month Alcohol type: wine Drug use: Never Substance use type: does not use Counseling given: No Counseling provided: none Caregiver/Support person: No Household members: spouse Housing: house Communication Needs: None Do you need help understanding health information?: Never Pets and animals: No Sexually active: Yes Do you think of yourself as: straight/heterosexual Current gender identity: female What is your relationship status?: How often do you talk on the phone with friends or family?: three or more times per week How often do you get together with friends or relatives?: three or more times per week How often do you attend pentecostalism or mormon services?: 4 or more times per year Do you belong to any clubs or organized social groups?: yes Panel score (0-1 are the most socially isolated patients): 4 What type of physical activity do you participate in: walking, weight lifting and yoga Duration: < 15 minutes/day Frequency: 1-2 times per week Pamela/Gnosticism: Anglican Special pamela needs: Yes (Last rights by a operator bearer systems) Seatbelt use: always Drive intox or ride w/intox emt driver: No Do you feel safe at home: Yes Do you feel safe in your relationship?: Yes Exam Const General: cooperative, healthy appearing and no acute distress Orientation: alert and awake HENMT Head: normal to inspection, normocephalic and atraumatic Mouth: moist mucous membranes Eyes Conjunctivae: conjunctivae normal Neck Neck: normal visual inspection, full ROM, trachea midline and supple Resp Effort & Inspection: normal respiratory effort and able to speak in complete sentences Cardio Rate: regular rate Rhythm: regular rhythm Skin General skin exam: no rashes or lesions noted Neuro General: patient alert, patient awake, moves all extremities and no focal motor deficits Cognition: normal cognition Speech: speech normal Gait: normal gait Motor: muscle tone normal throughout Sensory Exam: no sensory deficits noted Extrem General: capillary refill normal Other: Left elbow skin intact. Diffuse discomfort, swelling, with tenderness worse along the posterior aspect. Limited extension and flexion secondary to pain. Shoulder, mid forearm, wrist, hand unremarkable. Normal capillary refill and radial pulse. No deformity Psych Appearance: grossly normal Mental Status: mental status grossly normal Course Vital Signs Vital signs: Vital Signs Temperature 37.0 C 08/04/22 17:09 Pulse 64 08/04/22 17:09 Respiratory Rate 18 08/04/22 17:09 Blood Pressure 116/41 L 08/04/22 17:09 Pulse Oximetry 98 08/04/22 17:09 Temperature 37.0 C 08/04/22 17:09 Temperature Source Temporal Artery Scan 08/04/22 17:09 Pulse 64 08/04/22 17:09 Respiratory Rate 18 08/04/22 17:09 Respiratory Effort Non-Labored 08/04/22 17:12 Blood Pressure 116/41 L 08/04/22 17:09 Blood Pressure Position Sitting 08/04/22 17:09 Pulse Oximetry 98 08/04/22 17:09 Oxygen Delivery Method Room Air 08/04/22 17:09 Oxygen Flow Rate 0 08/04/22 17:09 Pain Level 9 08/04/22 17:09 Procedures Orthopedic Splinting/Casting Injury #1: Side: left Upper Extremity Injury Location: elbow Upper Extremity Immobilizer: sling/shoulder immobilizer and posterior splint PAWSS Have you Been Recently Intoxicated or Drunk Within the Last 30 days?: No Have you Ever Experienced Previous Episodes of Alcohol Withdrawal?: No Have you ever Experienced Withdrawal Seizures?: No Have you ever Experienced Delirium Tremens(DT)s?: No Have you ever undergone Alcohol Rehabilitation Treatment (i.e, inpt ot outpatient treatment programs)?: No Have you ever Experienced Blackouts?: No Have you ever Combined Alcohol with other Downers within the last 90 days?: No Have you ever Combined Alcohol with any other Substance of Abuse during the last 90 days?: No Positive Blood Alcohol level on Presentation? [PCS.BAL]: No Evidence of Increased Autonomic Activity (i.e. HR>120, tremor, sweating, agitation, nausea)?: No Result: 0
[2022-08-04] MEDS: Acetaminophen 500 MG TAB 1000 MG PO (17:32)
--- NOTE | 2022-08-04 17:59 | DI.VRAD_ITS ---
PROCEDURE INFORMATION: Exam: XR Left Elbow Exam date and time: 08/04/2022 5:51 PM Age: 66 years old Clinical indication: Injury or trauma; Blunt trauma (contusions or hematomas); Elbow; Left; Patient HX: Fall/pain TECHNIQUE: Imaging protocol: Radiologic exam of the Left elbow. Views: 3 or more views. COMPARISON: No relevant prior studies available. FINDINGS: Bones/joints: Comminuted impacted fractures of the proximal ulna and radial head. There is an associated joint effusion. No dislocation Soft tissues: Swelling surrounding the elbow and in the antecubital fossa IMPRESSION: Comminuted impacted fractures of the proximal ulna and radius with large joint effusion Dictated and Authenticated by: Steve Cochran MD. Ordering:RENAY Ramos MD
--- NOTE | 2022-08-04 18:15 | DI.CT_ITS ---
Exam(s) CT UPPER EXTREMITY LT WO EXAM: CT UPPER EXTREMITY LT WO CLINICAL HISTORY: fx on plain film, will need surgery TECHNIQUE: COMPARISON: No exams were available for comparison FINDINGS: CT examination of the region of the left elbow was performed utilizing multi slice acquisition and mu ltiplanar reconstruction. As noted on plain films, there are moderately comminuted mildly displaced fractures of the olecranon and the radial head and neck. The of olecranon fracture planes appear to involve the articular surface of the bone. Radial head fracture also involves articular surface. No humeral fracture identified. No dislocation. IMPRESSION: RADIATION DOSE DELIVERED: 126.7mGy.cm Total DLP !Error CTDIvol DATA REPOSITORY: All CT scans at this facility are submitted to the National Radiology Data Registry (NRDR) Dose Index Registry (DIR) with the [employer] (ACR). RADIATION OPTIMIZATION: All CT scans at this facility use at least one of these dose optimization te chniques: automated exposure control; mA and/or kV adjustment per patient size (includes targeted exa ms where dose is matched to clinical indication); or iterative reconstruction.
--- NOTE | 2022-08-04 18:52 | DI.VRAD_ITS ---
PROCEDURE INFORMATION: Exam: CT Left Upper Extremity Without Contrast, Elbow Exam date and time: 08/04/2022 6:32 PM Age: 66 years old Clinical indication: Injury or trauma; Fall; Blunt trauma (contusions or hematomas); Elbow; Left; Patient HX: FX on plain film, will need surgery TECHNIQUE: Imaging protocol: Computed tomography of the Left upper extremity without contrast. Exam focused on the elbow. COMPARISON: CR XR ELBOW LT COMPLETE 08/04/2022 5:51 PM FINDINGS: Bones/joints: Comminuted proximal ulnar and radial head fractures without dislocation. Mild impaction noted. No intra-articular fragments Soft tissues: Large joint effusion IMPRESSION: Proximal ulnar and radial fractures and large joint effusion Dictated and Authenticated by: Steve Cochran MD. Ordering:RENAY Ramos MD
[2022-08-04 19:42] VITALS: BP 143/65; PULSE 74; TEMP 36.2; O2SAT 97
[2022-08-04 19:49] VITALS: BP 143/65; PULSE 74; RESP 14; TEMP 36.2; O2SAT 97
== END 2022-08-04 19:56 | disposition home or self-care (01) ==
PROVIDERS: Emergency Provider Physician Assistant
DX: S52.102A Unspecified fracture of upper end of left radius, initial encounter for closed fracture (principal); S52.002A Unspecified fracture of upper end of left ulna, initial encounter for closed fracture; W19.XXXA Unspecified fall, initial encounter
CPT/HCPCS: 29105; 99284; 73080; 73200

== ENCOUNTER 2022-08-09 11:56 | Outpatient (CLI) | payer MEDICARE, SELFPAY ==
--- NOTE | 2022-08-09 10:45 | DI.RAD_ITS ---
Exam(s) XR ELBOW LT LIMITED EXAM: XR ELBOW LT LIMITED CLINICAL HISTORY: Left elbow fracture. TECHNIQUE: 2D digital imaging was performed of the left elbow. Two images were obtained. Julian and lateral views were obtained. COMPARISON: CR,XR XR ELBOW LT COMPLETE from 08/04/2022 FINDINGS: BONES: There has been no significant change in alignment of the fractures involving the radial head a nd proximal ulna. No bony destructive lesion is seen. JOINTS: The elbow is normally aligned. A joint effusion is present. SOFT TISSUE: Normal. IMPRESSION: Stable radial head and proximal ulnar fractures. DATA REPOSITORY: RADIATION DOSE DELIVERED:
== END 2022-08-09 11:57 | disposition home or self-care (01) ==
LOC: DIORS 11:57
PROVIDERS: Visit Provider Physician Assistant
DX: S52.002A Unspecified fracture of upper end of left ulna, initial encounter for closed fracture (principal); S52.102A Unspecified fracture of upper end of left radius, initial encounter for closed fracture; W19.XXXA Unspecified fall, initial encounter
CPT/HCPCS: 99213; 73070

== ENCOUNTER 2022-08-16 10:37 | Outpatient (CLI) | payer MEDICARE, SELFPAY ==
--- NOTE | 2022-08-16 09:15 | DI.RAD_ITS ---
Exam(s) XR ELBOW LT COMPLETE EXAM: XR ELBOW LT COMPLETE CLINICAL HISTORY: f/u L proximal ulna and radius fracture TECHNIQUE: COMPARISON: CR XR ELBOW LT LIMITED from 08/09/2022 FINDINGS: Three views were obtained. Previously described comminuted radial and ulnar fractures are again note d, little interval change in alignment allowing for differences in projection in comparison with prio r examination of August 09. The elbow is in a splint. IMPRESSION: RADIATION DOSE DELIVERED: Total DLP
== END 2022-08-16 10:38 | disposition home or self-care (01) ==
LOC: DIORS 10:38
PROVIDERS: Visit Provider Student in an Organized Health Care Education/Training Program
DX: S52.002A Unspecified fracture of upper end of left ulna, initial encounter for closed fracture (principal); S52.102A Unspecified fracture of upper end of left radius, initial encounter for closed fracture; X58.XXXA Exposure to other specified factors, initial encounter
CPT/HCPCS: 99214; 73080

== ENCOUNTER 2022-08-21 08:27 | Outpatient (CLI) | payer MEDICARE, SELFPAY ==
--- NOTE | 2022-08-21 15:45 | DI.RAD_ITS ---
Exam(s) XR ELBOW LT COMPLETE EXAM: XR ELBOW LT COMPLETE CLINICAL HISTORY: pain. TECHNIQUE: 2D digital imaging was performed of the left elbow. Three images were obtained. AP, lat eral and oblique views were obtained. COMPARISON: CR XR ELBOW LT COMPLETE from 08/16/2022 FINDINGS: The patient's elbow is in a cast. BONES: There has been no significant change in alignment of the fractures involving the proximal left radius and ulna. No new fracture is identified. No bony destructive lesion is seen. JOINTS: The elbow is normally aligned. No joint effusion is seen. SOFT TISSUE: Normal. IMPRESSION: Stable proximal radial and ulnar fractures. DATA REPOSITORY: RADIATION DOSE DELIVERED:
== END 2022-08-21 08:28 | disposition home or self-care (01) ==
LOC: DIORS 08:28
PROVIDERS: Visit Provider Student in an Organized Health Care Education/Training Program
DX: S52.002A Unspecified fracture of upper end of left ulna, initial encounter for closed fracture (principal); S52.102A Unspecified fracture of upper end of left radius, initial encounter for closed fracture; X58.XXXA Exposure to other specified factors, initial encounter
CPT/HCPCS: 73080

== ENCOUNTER 2022-08-27 14:59 | Outpatient (CLI) | payer MEDICARE, SELFPAY ==
--- NOTE | 2022-08-27 13:45 | DI.RAD_ITS ---
Exam(s) XR ELBOW LT LIMITED EXAM: XR ELBOW LT LIMITED CLINICAL HISTORY: f/u L proximal ulna/radius frx. TECHNIQUE: 2D digital imaging was performed of the left elbow. Three images were obtained. AP, lat eral and oblique views were obtained. COMPARISON: CR XR ELBOW LT LIMITED from 08/09/2022 CR XR ELBOW LT COMPLETE from 08/21/2022 FINDINGS: BONES: There has been no change in alignment of the fractures involving the proximal ulna and radial head. No bony destructive lesion is seen. JOINTS: The elbow is normally aligned. No joint effusion is seen. SOFT TISSUE: Normal. IMPRESSION: Stable proximal ulnar and radial fractures. DATA REPOSITORY: RADIATION DOSE DELIVERED:
== END 2022-08-27 15:00 | disposition home or self-care (01) ==
LOC: DIORS 14:59
PROVIDERS: Visit Provider Student in an Organized Health Care Education/Training Program
DX: S52.002D Unspecified fracture of upper end of left ulna, subsequent encounter for closed fracture with routine healing (principal); S52.102D Unspecified fracture of upper end of left radius, subsequent encounter for closed fracture with routine healing; W19.XXXD Unspecified fall, subsequent encounter
CPT/HCPCS: 99213; 73070

== ENCOUNTER 2022-09-03 14:48 | Outpatient (CLI) | payer MEDICARE, SELFPAY ==
--- NOTE | 2022-09-03 14:30 | DI.RAD_ITS ---
Exam(s) XR ELBOW LT COMPLETE EXAM: XR ELBOW LT COMPLETE INDICATION: f/u L proximal radius and ulna frx. COMPARISON: CR XR ELBOW LT LIMITED from 08/27/2022 TECHNIQUE: 2D digital imaging was performed. Two views. FINDINGS: Suboptimal positioning due to patient immobility. Posterior splint has been removed. There has been no change in in alignment of the proximal radial and ulnar fractures. Soft tissue swelling remains present. DATA REPOSITORY: RADIATION DOSE DELIVERED:
== END 2022-09-03 14:49 | disposition home or self-care (01) ==
LOC: DIORS 14:48
PROVIDERS: Visit Provider Student in an Organized Health Care Education/Training Program
DX: S52.002D Unspecified fracture of upper end of left ulna, subsequent encounter for closed fracture with routine healing (principal); S52.102D Unspecified fracture of upper end of left radius, subsequent encounter for closed fracture with routine healing; W19.XXXD Unspecified fall, subsequent encounter
CPT/HCPCS: 99214; 73080

== ENCOUNTER 2022-09-10 14:30 | Outpatient (CLI) | payer MEDICARE, SELFPAY ==
--- NOTE | 2022-09-10 13:45 | DI.RAD_ITS ---
Exam(s) XR ELBOW LT COMPLETE EXAM: XR ELBOW LT COMPLETE INDICATION: f/u L elbow fractures. COMPARISON: CR XR ELBOW LT LIMITED from 08/27/2022 CR XR ELBOW LT COMPLETE from 09/03/2022 TECHNIQUE: 2D digital imaging was performed. Four views. FINDINGS: There has been no change in the alignment of the fractures of the proximal radius and ulna. Soft tis werner swelling remains present. DATA REPOSITORY: RADIATION DOSE DELIVERED:
== END 2022-09-10 14:31 | disposition home or self-care (01) ==
LOC: DIORS 14:30
PROVIDERS: Visit Provider Student in an Organized Health Care Education/Training Program
DX: S52.002D Unspecified fracture of upper end of left ulna, subsequent encounter for closed fracture with routine healing (principal); S52.102D Unspecified fracture of upper end of left radius, subsequent encounter for closed fracture with routine healing; X58.XXXD Exposure to other specified factors, subsequent encounter
CPT/HCPCS: 99214; 73080

== ENCOUNTER 2022-09-24 10:19 | Outpatient (CLI) | payer MEDICARE, SELFPAY ==
--- NOTE | 2022-09-24 10:00 | DI.RAD_ITS ---
Exam(s) XR ELBOW LT COMPLETE EXAM: XR ELBOW LT COMPLETE INDICATION: F/U PROX RADIUS/ULNA FX. COMPARISON: CR XR ELBOW LT COMPLETE from 09/10/2022 TECHNIQUE: 2D digital imaging was performed. Two views. FINDINGS: The positioning is limited by flexion. There has been no change in the alignment of the proximal rad ial and ulnar fractures. There has been continued healing compared with the previous exam. There is persistent posterior soft tissue swelling. DATA REPOSITORY: RADIATION DOSE DELIVERED:
== END 2022-09-24 10:20 | disposition home or self-care (01) ==
LOC: DIORS 10:19
PROVIDERS: PCP Nurse Practitioner Family; Referring Provider Nurse Practitioner Family; Visit Provider Student in an Organized Health Care Education/Training Program
DX: S52.002D Unspecified fracture of upper end of left ulna, subsequent encounter for closed fracture with routine healing (principal); S52.102D Unspecified fracture of upper end of left radius, subsequent encounter for closed fracture with routine healing; W19.XXXD Unspecified fall, subsequent encounter
CPT/HCPCS: 99213; 73080

== ENCOUNTER 2022-10-08 11:52 | Outpatient (CLI) | payer MEDICARE, SELFPAY ==
--- NOTE | 2022-10-08 10:00 | DI.RAD_ITS ---
Exam(s) XR ELBOW LT COMPLETE EXAM: XR ELBOW LT COMPLETE INDICATION: f/u left radius fracture. COMPARISON: CR,XR XR ELBOW LT COMPLETE from 08/04/2022 CR XR ELBOW LT LIMITED from 08/09/2022 CR XR ELBOW LT COMPLETE from 09/24/2022 TECHNIQUE: 2D digital imaging was performed. Four views. FINDINGS: There has been no change in the alignment of the proximal radial and ulnar fractures which show incre ased healing. The bones appear severely osteoporotic. No bony erosions are seen. Prominent soft ti ssue swelling remains present. DATA REPOSITORY: RADIATION DOSE DELIVERED:
== END 2022-10-08 11:53 | disposition home or self-care (01) ==
LOC: DIORS 11:53
PROVIDERS: PCP Nurse Practitioner Family; Referring Provider Family Medicine; Visit Provider Student in an Organized Health Care Education/Training Program
DX: S52.002A Unspecified fracture of upper end of left ulna, initial encounter for closed fracture (principal); S52.102A Unspecified fracture of upper end of left radius, initial encounter for closed fracture; W19.XXXA Unspecified fall, initial encounter
CPT/HCPCS: 99213; 73080

== ENCOUNTER 2022-10-22 11:37 | Outpatient (CLI) | payer MEDICARE, SELFPAY ==
--- NOTE | 2022-10-22 09:00 | DI.RAD_ITS ---
Exam(s) XR ELBOW LT LIMITED EXAM: XR ELBOW LT LIMITED CLINICAL HISTORY: F/U prox radius/ulna fx. TECHNIQUE: 2D digital imaging was performed. COMPARISON: CR XR ELBOW LT COMPLETE from 10/08/2022 FINDINGS: 3 views There has been some further healing at the proximal ulna fracture site which is at the junction of th e proximal olecranon. No further displacement. Radial neck fracture site remains satisfactory with some healing and no further displacement. No radiopaque foreign body. No osseous lesions. IMPRESSION: Further healing. No further displacement. DATA REPOSITORY: RADIATION DOSE DELIVERED:
== END 2022-10-22 11:38 | disposition home or self-care (01) ==
LOC: DIORS 11:37
PROVIDERS: PCP Nurse Practitioner Family; Visit Provider Physician Assistant
DX: S52.002A Unspecified fracture of upper end of left ulna, initial encounter for closed fracture (principal); S52.102A Unspecified fracture of upper end of left radius, initial encounter for closed fracture; W19.XXXA Unspecified fall, initial encounter
CPT/HCPCS: 99213; 73070

== ENCOUNTER 2022-11-06 09:43 | Outpatient (CLI) | payer MEDICARE, SELFPAY ==
--- NOTE | 2022-11-06 09:30 | DI.RAD_ITS ---
Exam(s) XR ELBOW LT COMPLETE EXAM: XR ELBOW LT COMPLETE CLINICAL HISTORY: left elbow f/u. TECHNIQUE: 2D digital imaging was performed. COMPARISON: CR XR ELBOW LT COMPLETE from 08/21/2022 CR XR ELBOW LT LIMITED from 10/22/2022 FINDINGS: 3 views Appearance of the healing fracture sites proximal radius and ulna remain stable. Generalized osteope wayne again noted. No new fractures evident. Mild degenerative changes. No joint effusion. IMPRESSION: Stable appearance. DATA REPOSITORY: RADIATION DOSE DELIVERED:
== END 2022-11-06 09:44 | disposition home or self-care (01) ==
LOC: DIORS 09:44
PROVIDERS: PCP Nurse Practitioner Family; Referring Provider Nurse Practitioner Family; Visit Provider Physician Assistant
DX: S52.002D Unspecified fracture of upper end of left ulna, subsequent encounter for closed fracture with routine healing (principal); S52.102D Unspecified fracture of upper end of left radius, subsequent encounter for closed fracture with routine healing; X58.XXXD Exposure to other specified factors, subsequent encounter
CPT/HCPCS: 99213; 73080

== ENCOUNTER 2022-11-19 10:15 | Outpatient (CLI) | payer MEDICARE, SELFPAY ==
--- NOTE | 2022-11-19 10:45 | DI.RAD_ITS ---
Exam(s) XR ELBOW LT COMPLETE EXAM: XR ELBOW LT COMPLETE CLINICAL HISTORY: F/U FRACTURE. TECHNIQUE: 2D digital imaging was performed. Three views. COMPARISON: CR XR ELBOW LT COMPLETE from 08/16/2022 CR XR ELBOW LT COMPLETE from 11/06/2022 FINDINGS: There has been no change in the alignment of the proximal radial and ulnar fractures. Fracture lines no longer discretely visible. Disuse osteopenia is noted. No new abnormalities. DATA REPOSITORY: RADIATION DOSE DELIVERED:
== END 2022-11-19 10:16 | disposition home or self-care (01) ==
LOC: DIORS 11-20 08:34
PROVIDERS: PCP Nurse Practitioner Family; Visit Provider Physician Assistant
DX: S52.002D Unspecified fracture of upper end of left ulna, subsequent encounter for closed fracture with routine healing (principal); S52.102D Unspecified fracture of upper end of left radius, subsequent encounter for closed fracture with routine healing; X58.XXXD Exposure to other specified factors, subsequent encounter
CPT/HCPCS: 99213; 73080

== ENCOUNTER 2022-12-17 09:35 | Outpatient (CLI) | payer MEDICARE, SELFPAY | END 2022-12-17 09:36 | disposition home or self-care (01) | LOC: DIORS 09:35 | PROVIDERS: PCP Nurse Practitioner Family; Visit Provider Physician Assistant | DX: S52.102D Unspecified fracture of upper end of left radius, subsequent encounter for closed fracture with routine healing (principal); S52.002D Unspecified fracture of upper end of left ulna, subsequent encounter for closed fracture with routine healing; X58.XXXD Exposure to other specified factors, subsequent encounter; M75.02 Adhesive capsulitis of left shoulder; M24.522 Contracture, left elbow | CPT/HCPCS: 99213 ==

== ENCOUNTER → 2023-01-28 09:10 | Outpatient (BNVA) | payer MEDICARE, SELFPAY | PROVIDERS: PCP Nurse Practitioner Family; Visit Provider Student in an Organized Health Care Education/Training Program | DX: M75.02 Adhesive capsulitis of left shoulder (principal); S52.102D Unspecified fracture of upper end of left radius, subsequent encounter for closed fracture with routine healing; S52.002D Unspecified fracture of upper end of left ulna, subsequent encounter for closed fracture with routine healing; X58.XXXD Exposure to other specified factors, subsequent encounter | CPT/HCPCS: 99213 ==

== ENCOUNTER → 2023-03-25 09:10 | Outpatient (BNVA) | payer MEDICARE, SELFPAY | PROVIDERS: PCP Nurse Practitioner Family; Referring Provider Nurse Practitioner Family; Visit Provider Student in an Organized Health Care Education/Training Program | DX: S52.102D Unspecified fracture of upper end of left radius, subsequent encounter for closed fracture with routine healing (principal); S52.002D Unspecified fracture of upper end of left ulna, subsequent encounter for closed fracture with routine healing; X58.XXXD Exposure to other specified factors, subsequent encounter; M75.02 Adhesive capsulitis of left shoulder | CPT/HCPCS: 99213 ==

== ENCOUNTER 2023-03-26 02:54 | Outpatient (CLI) | payer MEDICARE, SELFPAY ==
[2023-03-26 08:14] LABS: ALT 22 U/L (14-59); AST 13 U/L (15-37); Albumin 3.9 g/dL (3.4-5.0); Alkaline Phosphatase 90 U/L (46-116); Anion Gap 5.8 mmol/L (3-11); BUN 12 mg/dL (7-18); Bilirubin, Total 0.5 mg/dL (0.2-1.0); CO2 32.2 mmol/L (21.0-32.0); CREATININE 0.6 mg/dL (0.55-1.02); Calcium 8.6 mg/dL (8.5-10.1); Calculated LDL 100 mg/dL (<100); Chloride 106 mmol/L (98-107); Cholesterol 191 mg/dL (<200); Glucose 95 mg/dL (74-106); HDL Cholesterol 73 mg/dL (40-60); Sodium 144 mmol/L (136-145); Total Protein 7.4 g/dL (6.4-8.2); Triglyceride 92 mg/dL (<150)
== END 2023-03-26 02:55 | disposition home or self-care (01) ==
LOC: LBO 02:54
PROVIDERS: PCP Nurse Practitioner Family; Visit Provider Nurse Practitioner Family
DX: E78.5 Hyperlipidemia, unspecified (principal)
CPT/HCPCS: 36415; 80053; 80061

== ENCOUNTER 2023-05-30 01:38 | Outpatient (CLI) | payer MEDICARE, SELFPAY ==
--- NOTE | 2023-05-30 06:30 | DI.DEXA_ITS ---
Exam(s) XR DEXA BONE DENSITY W/WO BEATRIZ EXAM: XR DEXA BONE DENSITY W/WO BEATRIZ CLINICAL HISTORY: screening for osteoporosis IN POSTMENOPAUSAL WOMAN,Z78.0 TECHNIQUE: COMPARISON: No exams were available for comparison FINDINGS: Lateral Spine Image: Unremarkable. No compression deformities identified. Left hip: Total T-Score: -2.3 Total Z-Score: -0.8 T- and Z-scores: Findings are consistent with osteopenia. There is osteoporosis seen in the femoral neck with a T-score of -3.0. Lumbar Spine: Total T-Score: -3.1 Total Z-Score: -1.0 T- and Z-scores: Findings are consistent with osteoporosis. IMPRESSION: Osteoporosis in the lumbar spine and the left femoral neck.
--- NOTE | 2023-05-30 06:30 | DI.MAMMO_ITS ---
Exam(s) MAMMO SCREENING EXAM: MAMMO SCREENING CLINICAL HISTORY: screening,Z12.39 TECHNIQUE: Bilateral full field digital CC and MLO mammographic images were obtained with 3D tomosyn thesis and utilizing computer aided detection (CAD). COMPARISON: Available for comparison. FINDINGS: Masses/Architectural Distortion: None seen. Microcalcifications: No suspicious pleomorphic-type are seen. Skin Thickening/Nipple Retraction: None. IMPRESSION: 1. No significant interval change with no specific features of malignancy noted. 2. Unless there is more urgent need, screening mammography is recommended, as per [employer] guidelines. BI-RADS Category 1 - Negative Breast Density - Category C - Heterogeneously dense Breast density category C or D implies that the patient has dense breast tissue. Dense breast tissue is very common and is not abnormal but dense breast tissue can make it harder to find cancer on a ma mmogram. Also, dense breast tissue may increase their breast cancer risk. This information about the result of the mammogram report was provided to the patient to raise their awareness. Use this report when you speak with the patient about their risks for breast cancer, which includes their family hist ory. At that time, you may recommend for more screening tests (Ultrasound or MRI) as they might be us eful based on their risk. A negative radiographic report should not delay biopsy if a dominant or clinically suspicious mass is present. Up to ten percent of cancers are not identified on mammography. A negative report may reinforce clinical impression. Adenosis and dense breasts may obscure an underlying neoplasm. False positive reports average 6 to 10%. Patient will receive a letter notifying them of these results.
== END 2023-05-30 01:58 ==
LOC: DI 01:38
PROVIDERS: PCP Nurse Practitioner Family; Visit Provider Nurse Practitioner Family
DX: Z78.0 Asymptomatic menopausal state (principal); Z12.31 Encounter for screening mammogram for malignant neoplasm of breast; Z13.820 Encounter for screening for osteoporosis
CPT/HCPCS: 77063; 77067; 77080

== ENCOUNTER → 2024-06-01 01:16 | Outpatient (CLI) | payer MEDICARE, SELFPAY ==
--- NOTE | 2024-06-01 06:30 | DI.MAMMO_ITS ---
Exam(s) MAMMO SCREENING EXAM: MAMMO SCREENING CLINICAL HISTORY: screening,Z12.39 TECHNIQUE: Bilateral full field digital CC and MLO mammographic images were obtained with 3D tomosyn thesis and utilizing computer aided detection (CAD). COMPARISON: Available for comparison. FINDINGS: Masses/Architectural Distortion: None seen. Microcalcifications: No suspicious pleomorphic-type are seen. Skin Thickening/Nipple Retraction: None. IMPRESSION: 1. No significant interval change with no specific features of malignancy noted. 2. Unless there is more urgent need, screening mammography is recommended, as per [employer] guidelines. BI-RADS Category 1 - Negative Breast Density - Category B - Scattered areas of fibroglandular density Breast density category C or D implies that the patient has dense breast tissue. Dense breast tissue is very common and is not abnormal but dense breast tissue can make it harder to find cancer on a ma mmogram. Also, dense breast tissue may increase their breast cancer risk. This information about the result of the mammogram report was provided to the patient to raise their awareness. Use this report when you speak with the patient about their risks for breast cancer, which includes their family hist ory. At that time, you may recommend for more screening tests (Ultrasound or MRI) as they might be us eful based on their risk. A negative radiographic report should not delay biopsy if a dominant or clinically suspicious mass is present. Up to ten percent of cancers are not identified on mammography. A negative report may reinforce clinical impression. Adenosis and dense breasts may obscure an underlying neoplasm. False positive reports average 6 to 10%. Patient will receive a letter notifying them of these results.
== END ==
PROVIDERS: PCP Nurse Practitioner Family; Visit Provider Nurse Practitioner Family
DX: Z12.39 Encounter for other screening for malignant neoplasm of breast (principal); Z12.31 Encounter for screening mammogram for malignant neoplasm of breast
CPT/HCPCS: 77063; 77067

== ENCOUNTER 2024-09-08 02:55 | Outpatient (CLI) | payer MEDICARE, SELFPAY ==
[2024-09-08 08:51] LABS: ALT 29 U/L (14-59); AST 21 U/L (15-37); Albumin 3.7 g/dL (3.4-5.0); Alkaline Phosphatase 87 U/L (46-116); Anion Gap 7.2 mmol/L (3-11); BUN 11 mg/dL (7-18); Bilirubin, Total 0.55 mg/dL (0.2-1.0); CO2 32.8 mmol/L (21.0-32.0); CREATININE 0.7 mg/dL (0.55-1.02); Calcium 9.1 mg/dL (8.5-10.1); Calculated LDL 103 mg/dL (<100); Chloride 105 mmol/L (98-107); Cholesterol 196 mg/dL (<200); Estimated GFR 92.98 (mL/min/1.73m2); Glucose 91 mg/dL (74-106); HDL Cholesterol 67 mg/dL (40-60); Potassium 3.8 mmol/L (3.5-5.1); Sodium 145 mmol/L (136-145); Total Protein 7.4 g/dL (6.4-8.2); Triglyceride 130 mg/dL (<150); Vitamin D 25 Total 56.3 ng/mL (30-100)
== END 2024-09-08 02:56 | disposition home or self-care (01) ==
LOC: LBO 02:55
PROVIDERS: PCP Nurse Practitioner Family; Visit Provider Nurse Practitioner Family
DX: E78.5 Hyperlipidemia, unspecified (principal); M81.0 Age-related osteoporosis without current pathological fracture
CPT/HCPCS: 36415; 80053; 80061; 82306

== ENCOUNTER 2025-06-02 02:02 | Outpatient (CLI) | payer MEDICARE, SELFPAY ==
--- NOTE | 2025-06-02 09:25 | DI.MAMMO_ITS ---
Exam(s) MAMMO SCREENING EXAM: MAMMO SCREENING CLINICAL HISTORY: screening,Z12.39 TECHNIQUE: Bilateral full field digital CC and MLO mammographic images were obtained with 3D tomosynthesis and utilizing computer aided detection (CAD). COMPARISON: Comparison is made with prior examinations. FINDINGS: Masses/Architectural Distortion: No suspicious masses or areas of architectural distortion are present. Microcalcifications: No suspicious pleomorphic-type are seen. Skin Thickening/Nipple Retraction: None. IMPRESSION: 1. No significant interval change with no specific features of malignancy noted. 2. Unless there is more urgent need, screening mammography is recommended, as per [employer] guidelines. BI-RADS Category 1 - Negative Breast Density - Category B - There are scattered areas of fibroglandular density. Breast density Category C or D implies that the patient has dense breast tissue. Dense breast tissue can make it harder to find cancer on a mammogram. Dense breast tissue is also associated with an increased risk of breast cancer. This information about the result of the mammogram report was provided to the patient to raise their awareness. Use this report when you speak with the patient about their risks for breast cancer, which includes their family history. At that time, you may recommend additional screening tests (Ultrasound or MRI) as these tests may add significant information. A negative radiographic report should not delay biopsy if a dominant or clinically suspicious mass is present. Up to ten percent of cancers are not identified on mammography. A negative report may reinforce clinical impression. Adenosis and dense breasts may obscure an underlying neoplasm. False positive reports average 6 to 10%. Patient will receive a letter notifying them of these results.
== END 2025-06-02 02:22 ==
PROVIDERS: PCP Nurse Practitioner Family; Visit Provider Nurse Practitioner Family
DX: Z12.31 Encounter for screening mammogram for malignant neoplasm of breast (principal); R92.323 Mammographic fibroglandular density, bilateral breasts
CPT/HCPCS: 77063; 77067

== ENCOUNTER 2025-10-11 09:11 | Outpatient (CLI) | payer MEDICARE, SELFPAY ==
[2025-10-11 14:24] LABS: Cholesterol 178 mg/dL (<200); HDL Cholesterol 64 mg/dL (>40)
== END 2025-10-11 09:12 | disposition home or self-care (01) ==
PROVIDERS: PCP Nurse Practitioner Family; Visit Provider Nurse Practitioner Family
DX: E78.5 Hyperlipidemia, unspecified (principal)
CPT/HCPCS: 36415; 80061